=== PATIENT | male | born 1990 | race Caucasian/White ===

== ENCOUNTER 2023-03-13 11:34 | Emergency (ER) | payer MEDICAID, SELFPAY ==
[2023-03-13 11:52] VITALS: BP 128/86; PULSE 97; RESP 16; TEMP 36.9; O2SAT 95; BMI 25.8
== END 2023-03-13 13:52 | disposition left against medical advice (07) ==
LOC: ED 13:29
PROVIDERS: Emergency Provider Family Medicine
DX: Z53.21 Procedure and treatment not carried out due to patient leaving prior to being seen by health care provider (principal)

== ENCOUNTER 2023-09-16 06:21 | Emergency (ER) | payer MEDICAID, SELFPAY ==
[2023-09-16 06:27] VITALS: BP 105/81; PULSE 84; RESP 18; TEMP 37.1; O2SAT 99; BMI 25.8
--- NOTE | 2023-09-16 06:57 | ED.GENADULT ---
HPI - General Adult General Chief complaint: Asthma Stated complaint: difficulty breathing, asthma Time Seen by Provider: 09/16/23 06:27 History of Present Illness HPI narrative: CC: Shortness of Breath, Cough pt. with symptoms for last couple of days. worse over the night tonight. did take rescue inhaler with little relief. dry cough. denies fevers, n/v, diarrhea. 32-year-old man presenting to the emergency department with concern of shortness of breath increasing over the last couple of days. Worse tonight. Is out of his nebulizations. Did use his rescue inhaler which has not helped much. He is not really having chest pain. No fever. 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 Has had some runny nose and a little cough. Does continue to smoke. No particular exposures. Does acknowledge a history of pneumonia. Related Data Home Medications Medication Instructions Recorded Confirmed albuterol sulfate 90 mcg/actuation 1 - 2 puff inhalation Q4H PRN 03/13/23 09/16/23 aerosol inhaler (Ventolin HFA) budesonide-formoterol HFA 160 2 puff inhalation BID 03/13/23 09/16/23 mcg-4.5 mcg/actuation aerosol inhaler (Symbicort) dextroamphetamine-amphetamine 10 15 - 20 mg PO BID@08,14 03/13/23 09/17/23 mg tablet testosterone cypionate 200 mg/mL 40 mg IM Q7D 03/13/23 09/16/23 intramuscular oil ipratropium 0.5 mg-albuterol 3 mg 3 ml inhalation QID PRN wheezing 09/16/23 09/16/23 (2.5 mg base)/3 mL nebulization soln cetirizine 10 mg tablet (24Hour 10 mg PO DAILY PRN 09/17/23 09/17/23 Allergy) hydroxyzine HCl 25 mg tablet 25 mg PO Q6H PRN 09/17/23 09/17/23 lorazepam 1 mg tablet 1 mg PO HS PRN 09/17/23 09/17/23 ondansetron 4 mg disintegrating 4 mg PO Q8H PRN nausea/vomiting 09/17/23 09/17/23 tablet Previous Rx's Medication Instructions Recorded prednisone 20 mg tablet 40 mg (2 x 20 mg) PO DAILY #8 tabs 09/16/23 azithromycin 250 mg tablet 250 mg PO Q24H #3 tabs 09/18/23 cefpodoxime 200 mg tablet 200 mg PO BID #14 tabs 09/18/23 fluticasone propionate 50 1 spray intranasal BID #16 grams 09/18/23 mcg/actuation nasal spray,suspension (Flonase Allergy Relief) ipratropium 0.5 mg-albuterol 3 mg 3 ml inhalation QID #90 mL 09/18/23 (2.5 mg base)/3 mL nebulization soln nicotine (polacrilex) 2 mg gum 2 mg buccal Q1H PRN #40 ea 09/18/23 nicotine 14 mg/24 hr daily 1 patch transdermal HS #28 ea 09/18/23 transdermal patch Allergies Allergy/AdvReac Type Severity Reaction Status Date / Time sertraline [From Zoloft] Allergy Severe Asthma Verified 09/16/23 06:32 morphine Allergy Mild Anxiety Verified 09/16/23 06:32 Review of Systems Status of ROS: Reports: 6 or more systems reviewed and unremarkable except as noted in History and below [facility] Medical History Anxiety ?F41.9 - Anxiety disorder, unspecified (ICD-10) ADHD ?F90.9 - Attention-deficit hyperactivity disorder, unspecified type (ICD-10) Transgender man on hormone therapy ?F64.0 - Transsexualism (ICD-10) ?Z79.899 - Other nursing home (current) drug therapy (ICD-10) Surgical History H/O mastectomy ?Z90.10 - Acquired absence of unspecified breast and nipple (ICD-10) Social History Narrative: Lives with partner Brie (MDM if needed). 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 + smoker, very motivated to quit. No ETOH currently. Full Code. What is your current living situation?: I presently have a place to live Problems where you live: no known problems Problems where you live details: N/A In the past 12 months, utilities in danger of being shut off: no In past 12 months, lack of transportation kept you from medical appts, meetings, work, or getting things needed for daily living: no In the past 12 mos, have been you worried that your food would run out before you had money to buy more?: never true In the past 12 mos, the food you bought just didn't last and you didn't have money to buy more?: never true Highest level of school completed/degree received: decline to answer Smoking Status: Current every day smoker What tobacco products do you use: cigarettes Second hand tobacco smoke exposure: Yes How often do you have a drink containing alcohol: never AUDIT-C Alcohol total score: 0 Non-prescribed substance use: marijuana (any form) Caffeine: Yes How often does anyone, including family, friends and others, physically hurt you: never How often does anyone, including family, friends and others, insult or talk down to you: never How often does anyone, including family, friends and others, threaten you with harm: never How often does anyone, including family, friends and others, scream or curse at you: never service: No Exam Narrative: Exam Narrative: Pleasant. Clearly labored in his breathing but not tachypneic. Is able to speak in complete sentences. Does sound congested in the nasopharynx without swelling erythema or tenderness. Neck appears symmetrical. No supraclavicular crepitus. There are breath sounds throughout with diffuse rhonchi and trace end-expiratory wheezing. Heart in regular rate and rhythm. Extremities are well perfused. There is no perioral bluing. Oropharynx hyperemic. Moist. Const: Vital Signs, click to edit/add: Vital Signs - 24 hr 09/16/23 06:27 Temperature 98.7 F Pulse Rate [Right Pulse Oximeter] 84 Respiratory Rate 18 Blood Pressure [Ri ght Upper Arm] 105/81 Pulse Oximetry 99 Oxygen Delivery Me thod Room Air Documenting provider has reviewed patient's vital signs: yes Course Vital Signs Vital signs: Initial Vital Signs Temperature 98.7 F 09/16/23 06:27 Temperature Source Temporal Artery Scan 09/16/23 06:27 Pulse Rate 84 09/16/23 06:27 Respiratory Rate 18 09/16/23 06:27 Blood Pressure 105/81 09/16/23 06:27 Blood Pressure Mean 89 09/16/23 06:27 Blood Pressure Position Sitting 09/16/23 06:27 Pulse Oximetry 99 09/16/23 06:27 Oxygen Delivery Method Room Air 09/16/23 06:27 Vital Signs Temperature 98.7 F 09/16/23 06:27 Pulse Rate 84 09/16/23 06:27 Respiratory Rate 18 09/16/23 06:27 Blood Pressure 105/81 09/16/23 06:27 Pulse Oximetry 99 09/16/23 06:27 Oxygen Delivery Method Room Air 09/16/23 06:27 Temperature 98.7 F 09/16/23 06:27 Pulse Rate 84 09/16/23 06:27 Respiratory Rate 18 09/16/23 06:27 Blood Pressure 105/81 09/16/23 06:27 Pulse Oximetry 95 09/16/23 07:07 Oxygen Delivery Method Room Air 09/16/23 06:27 Medical Decision Making MDM Narrative Medical decision making narrative: Will be monitored on oximetry. He is oxygenating well at the moment though clearly struggling. History of asthma/reactive airway. Differential does include pneumonia and given history probably would be a good idea to do a chest x-ray. I suppose pulmonary embolus could be in differential to but with this degree of respiratory effect, I might expect worsening vital signs. Given community prevalence, we discussed screening for COVID influenza. Does not seem to have secondary symptoms of these and mutually agreed to defer. Given a DuoNeb and prednisone. Less wheeze and less rhonchi on reauscultation. Still with good air movement. Chest x-ray reviewed by me looks to be without any infiltrate. With treatment above overall improved felt he could go home with further nebulizations available. See patient discharge plan Medical Records Medical records reviewed: Yes I reviewed the patient's medical records Lab Data Lab results reviewed: Yes I reviewed the patient's lab results Discharge Plan Discharge Clinical Impression: URI (upper respiratory infection), Asthma with acute exacerbation Patient Disposition: Home, Self-Care Condition: Improved Instructions: Asthma (ED), Upper Respiratory Infection (DC) Additional Instructions: Stay well-hydrated. Menthol vapors overnight might be helpful. Do what you can to quit smoking. Might be a good idea to follow up with your primary care provider for recheck of progress regarding treatment of your asthma. Good to see you. Prednisone and DuoNebs sent into your pharmacy. Prescriptions: New prednisone 20 mg tablet 40 mg PO DAILY Qty: 8 1RF No Action dextroamphetamine-amphetamine 10 mg tablet 15 - 20 mg PO BID@08,14 Rx Instructions: TAKE 2 TABLETS BY MOUTH EVERY MORNING AND 1.5 IN THE EARLY AFTERNOON testosterone cypionate 200 mg/mL oil 40 mg IM Q7D albuterol sulfate [Ventolin HFA] 90 mcg/actuation HFA aerosol inhaler 1 - 2 puff INHALATION Q4H PRN budesonide-formoterol [Symbicort] 160-4.5 mcg/actuation HFA aerosol inhaler 2 puff INHALATION BID ipratropium-albuterol 0.5 mg-3 mg(2.5 mg base)/3 mL solution for nebulization 3 ml INHALATION QID PRN (Reason: wheezing) Hold Instructions: Resume on 09/23/23. hydroxyzine HCl 25 mg tablet 25 mg PO Q6H PRN lorazepam 1 mg tablet 1 mg PO HS PRN ondansetron 4 mg tablet,disintegrating 4 mg PO Q8H PRN (Reason: nausea/vomiting) cetirizine [24Hour Allergy] 10 mg tablet 10 mg PO DAILY PRN ipratropium-albuterol 0.5 mg-3 mg(2.5 mg base)/3 mL Solution For Nebulization 3 ml inhalation QID Qty: 90 1RF Rx Instructions: Take 4 times daily on scheduled basis for 5 days, then resume 4 times daily as needed nicotine 14 mg/24 hr Patch 24 Hour 1 patch transdermal HS Qty: 28 1RF nicotine (polacrilex) 2 mg Gum 2 mg buccal Q1H PRNQty: 40 1RF azithromycin 250 mg Tablet 250 mg PO Q24H Qty: 3 0RF Taper: Z-NIK 250 mg Q24H for 3 Days and 0 Hour cefpodoxime 200 mg tablet 200 mg PO BID Qty: 14 0RF Rx Instructions: must administer with a meal/food fluticasone propionate [Flonase Allergy Relief] 50 mcg/actuation spray,suspension 1 spray intranasal BID Qty: 16 2RF Rx Instructions: administer into each nostril Follow Up/Referrals: Provider,Not a Local [Primary Care Provider] - Stand Alone Forms: [employer] Info Instructions
--- NOTE | 2023-09-16 07:06 | CRLHL7_ITS ---
For Patients: As a result of the Century Cures Act, medical imaging exams and procedure reports are released immediately into your electronic medical record. You may view this report before your referring provider. If you have questions, please contact your health care provider. INDICATION: Asthma exacerbation, right lower posterior chest pain, history pneumo COMPARISON: 10/21/2019 TECHNIQUE: 1 view chest radiograph. FINDINGS: The lungs are well expanded. No focal consolidations. No pulmonary edema. No pleural effusion. No pneumothorax. No pneumomediastinum. Normal cardiomediastinal silhouette. Bones: Normal for age. IMPRESSION: Lungs clear. Normal chest radiograph. Dictated by Faith Palencia MD @ 09/16/2023 7:27:23 AM (Electronically Signed)
[2023-09-16 07:07] VITALS: O2SAT 95
[2023-09-16] MEDS: IPRAT-ALBUT 0.5-2.5 MG/3 ML NEB 1 NEB IH (07:43)
--- NOTE | 2023-09-16 07:49 | ED.NURSE ---
patient is improving after the duo neb, sounds less audible wheeze and have the prednisone for patient to take. given some crackers to eat with meds.
== END 2023-09-16 08:39 | disposition home or self-care (01) ==
PROVIDERS: Emergency Provider Family Medicine
DX: J45.901 Unspecified asthma with (acute) exacerbation (principal)
CPT/HCPCS: 71045; 94640; 94761; 99284

== ENCOUNTER 2023-09-16 20:55 | Observation (INO) | payer MEDICAID, SELFPAY ==
[2023-09-16 21:01] VITALS: BP 146/74; PULSE 128; RESP 28; TEMP 37.6; O2SAT 93
--- NOTE | 2023-09-16 21:20 | ED.SOB ---
HPI - SOB/Dyspnea General Chief Complaint: Shortness of Breath/Dyspnea Stated Complaint: Difficulty breathing Time Seen by Provider: 09/16/23 21:13 History of Present Illness HPI Narrative: This 32-year-old male comes in with shortness of breath due to asthma symptoms. He was seen early this morning in this same emergency department at which time he had chest x-ray with no sign of acute findings. He also received a DuoNeb and a dose of prednisone. He states that he felt better initially but his shortness of breath returned a couple hours prior to arrival here. He arrives with a pulse at 128 beats per minute with use of accessory muscles for breathing and bilateral inspiratory and expiratory wheezes. He is able to speak in 2 or 3 words at a time. O2 sats are at 93% on room air with respiration rate at 28 per minute. He states that he thinks he has had a fever. He does have an occasional cough. He is using albuterol at home and states that he is also taking Symbicort as a preventative medicine. Related Data Home Medications Medication Instructions Recorded Confirmed albuterol sulfate 90 mcg/actuation 1 - 2 puff inhalation Q4H PRN 03/13/23 09/16/23 aerosol inhaler (Ventolin HFA) budesonide-formoterol HFA 160 2 puff inhalation BID 03/13/23 09/16/23 mcg-4.5 mcg/actuation aerosol inhaler (Symbicort) dextroamphetamine-amphetamine 10 10 mg PO DIRECTED 03/13/23 09/16/23 mg tablet testosterone cypionate 200 mg/mL 40 mg IM Q7D 03/13/23 09/16/23 intramuscular oil ipratropium 0.5 mg-albuterol 3 mg 3 ml inhalation QID PRN wheezing 09/16/23 09/16/23 (2.5 mg base)/3 mL nebulization soln Previous Rx's Medication Instructions Recorded ipratropium 0.5 mg-albuterol 3 mg 3 ml inhalation QID PRN #90 mL 09/16/23 (2.5 mg base)/3 mL nebulization soln prednisone 20 mg tablet 40 mg (2 x 20 mg) PO DAILY #8 tabs 09/16/23 Allergies Allergy/AdvReac Type Severity Reaction Status Date / Time sertraline [From Zoloft] Allergy Severe Asthma Verified 09/16/23 06:32 morphine Allergy Mild Anxiety Verified 09/16/23 06:32 Review of Systems Status of ROS: Reports: 10 or more systems reviewed and unremarkable except as noted in History and below Narrative: Constitutional: No fevers, no weight gain or loss. Eyes: No discharge. No vision changes. HENT: No congestion, no sore throat, no ear pain. Cardiovascular: No chest pain, no palpitations. Respiratory: Bilateral wheezes and shortness of breath. Gastrointestinal: No abdominal pain, no vomiting, no diarrhea. Genitourinary: No dysuria, no hematuria. Musculoskeletal: Normal range of motion. Skin: No rashes, no pruritis. Neurological: No dizziness, weakness, sensory change, speech change. Endo/Heme/Allergies: No bruising or bleeding. No polydipsia. Pysch: no suicidality, no anxiety, no insomnia. All other systems reviewed and are negative. Exam Narrative: Exam Narrative: Constitutional: Well-developed, well-nourished, no acute distress. HEENT: Normocephalic, atraumatic. Neck: Normal range of motion. Nontender. Supple. Heart: Regular. No murmurs. Tachycardia. Intact distal pulses. Lungs: Bilateral inspiratory and expiratory wheezes. Use of accessory muscles for breathing. Abdomen: Normal bowel sounds. Nontender. No rebound tenderness. Genitalia: Deferred. Back: No midline tenderness. Normal range of motion. Extremities: Normal range of motion. No injury. Skin: Intact. No rash. Warm. No erythema or pallor. Neurologic: No altered sensation. No weakness. Alert and oriented. Psychiatric: No suicidality. No anxiety or depression. No insomnia. Nursing notes and vitals signs are reviewed. Const: Vital Signs, click to edit/add: Vital Signs - 24 hr 09/16/23 21:01 09/16/23 22:04 Temperature 99.7 F H Pulse Rate 111 H Pulse Rate [Left P ulse Oximeter] 128 H Respiratory Rate 28 H Blood Pressure [Ri ght Upper Arm] 146/74 H Pulse Oximetry 93 93 Oxygen Delivery Me thod Room Air Course Vital Signs Vital signs: Initial Vital Signs Temperature 99.7 F H 09/16/23 21:01 Temperature Source Temporal Artery Scan 09/16/23 21:01 Pulse Rate 128 H 09/16/23 21:01 Pulse Rhythm Regular 09/16/23 21:01 Respiratory Rate 28 H 09/16/23 21:01 Blood Pressure 146/74 H 09/16/23 21:01 Blood Pressure Mean 98 09/16/23 21:01 Blood Pressure Position Sitting 09/16/23 21:01 Pulse Oximetry 93 09/16/23 21:01 Oxygen Delivery Method Room Air 09/16/23 21:01 Vital Signs Temperature 99.7 F H 09/16/23 21:01 Pulse Rate 128 H 09/16/23 21:01 Respiratory Rate 28 H 09/16/23 21:01 Blood Pressure 146/74 H 09/16/23 21:01 Pulse Oximetry 93 09/16/23 21:01 Oxygen Delivery Method Room Air 09/16/23 21:01 Temperature 99.7 F H 09/16/23 21:01 Pulse Rate 111 H 09/16/23 22:04 Respiratory Rate 28 H 09/16/23 21:01 Blood Pressure 146/74 H 09/16/23 21:01 Pulse Oximetry 93 09/16/23 22:04 Oxygen Delivery Method Room Air 09/16/23 21:01 MDM - SOB/Dyspnea MDM Narrative Medical decision making narrative: This patient comes in with increased respiratory rate, decreased air movement, tachycardia, and recurrent flare up of asthma symptoms. He was seen earlier this morning and had temporary improvement with a DuoNeb and a steroid dose. The patient arrives here with oximetry at 92% on room air. A DuoNeb was administered and an IV dose of Solu-Medrol 125 mg was given. Lab results returned with leukocytosis at around 14,000 which is likely due to his steroid dose recently. The patient continues to have similar oximetry after these treatments and yet has some tachycardia and tachypnea. IA spoke with the hospitalist business system consultant, Dr. Rios, who agrees to his admission into the hospital for further management. Lab Data Labs: Lab Results 09/16/23 Range/Units 21:28 WBC 14.87 H (4.50-11.00) K/uL RBC 5.78 (4.30-5.90) m/uL Hgb 17.3 (13.5-17.5) gm/dL Hct 49.0 (37.0-53.0) % MCV 85 (80-100) fL MCH 30 (26-34) pg MCHC 35 (32-36) gm/dL RDW Coeff of Becca 13.0 (11.5-15.5) % Plt Count 373 (140-440) K/uL Neut % (Auto) 83.0 H (42.0-72.0) % Lymph % (Auto) 9.5 L (20-44) % Taliaferro % (Auto) 6.4 (0.0-11.0) % Eos % (Auto) 0.2 (0.0-7.0) % Baso % (Auto) 0.1 (0.0-3.0) % Neut # (Auto) 12.30 H (1.7-7.0) K/uL Lymph # (Auto) 1.40 (0.90-2.90) K/uL Taliaferro # (Auto) 1.00 H (0.00-0.90) K/UL Eos # (Auto) 0.00 (0.00-0.50) K/uL Baso # (Auto) 0.00 (0.00-0.30) K/uL Abs Immat Gran (auto) 0.10 (0.00-0.30) K/uL Imm/Tot Granulo (auto) 0.8 % Sodium 142 (135-149) mmol/L Potassium 3.8 (3.6-5.1) mmol/L Chloride 106 (96-114) mmol/L Carbon Dioxide 22 (20-32) mmol/L Anion Gap 14 (7-15) mEq/L BUN 15 (5-24) mg/dL Creatinine 0.8 (0.5-1.5) mg/dL Estimated GFR 119 ml/min Glucose 161 H (60-115) mg/dL Calcium 10.2 (8.4-10.6) mg/dL Discharge Plan Discharge Clinical Impression: Asthma with acute exacerbation Patient Disposition: Admitted As Inpatient Condition: Unchanged Prescriptions: No Action dextroamphetamine-amphetamine 10 mg tablet 10 mg PO DIRECTED Rx Instructions: TAKE 2 TABLETS BY MOUTH EVERY MORNING AND 1.5 IN THE EARLY AFTERNOON testosterone cypionate 200 mg/mL oil 40 mg IM Q7D albuterol sulfate [Ventolin HFA] 90 mcg/actuation HFA aerosol inhaler 1 - 2 puff INHALATION Q4H PRN budesonide-formoterol [Symbicort] 160-4.5 mcg/actuation HFA aerosol inhaler 2 puff INHALATION BID ipratropium-albuterol 0.5 mg-3 mg(2.5 mg base)/3 mL solution for nebulization 3 ml INHALATION QID PRN (Reason: wheezing) ipratropium-albuterol 0.5 mg-3 mg(2.5 mg base)/3 mL solution for nebulization 3 ml inhalation QID PRNQty: 90 1RF prednisone 20 mg tablet 40 mg PO DAILY Qty: 8 1RF Follow Up/Referrals: Provider,Not a Local [Referring] -
[2023-09-16] MEDS: IPRAT-ALBUT 0.5-2.5 MG/3 ML NEB 1 NEB IH ×2 (21:28→23:46)
[2023-09-16] MEDS: METHYLPREDNISOLONE SOD SUCC 62.5 MG/ML (125) 125 MG IVP (21:28)
[2023-09-16 21:39] LABS: Basophils Percent Auto 0.1 % (0.0-3.0); Eosinophils Percent Auto 0.2 % (0.0-7.0); Hemoglobin* 17.3 gm/dL (13.5-17.5); Immature Granulocytes Pct Auto 0.8 %; Lymphocytes Percent Auto 9.5 % (20-44); Mean Corpuscular HGB Conc 35 gm/dL (32-36); Mean Corpuscular Hemoglobin 30 pg (26-34); Mean Corpuscular Volume 85 fL (80-100); Monocytes Percent Auto 6.4 % (0.0-11.0); Platelet Count* 373 K/uL (140-440); Red Blood Count 5.78 m/uL (4.30-5.90); White Blood Count* 14.87 K/uL (4.50-11.00)
[2023-09-16 21:45] LABS: Slide Review Reflex No
[2023-09-16 21:59] LABS: Chloride* 106 mmol/L (96-114); Potassium* 3.8 mmol/L (3.6-5.1); Sodium* 142 mmol/L (135-149)
[2023-09-16 22:02] LABS: Anion Gap 14 mEq/L (7-15); Blood Urea Nitrogen* 15 mg/dL (5-24); Carbon Dioxide* 22 mmol/L (20-32); Creatinine* 0.8 mg/dL (0.5-1.5); Estimated Glomerular Filt Rate 119 ml/min
[2023-09-16 22:03] LABS: Calcium* 10.2 mg/dL (8.4-10.6); Glucose* 161 mg/dL (60-115)
[2023-09-16 22:04] VITALS: PULSE 111; O2SAT 93
--- NOTE | 2023-09-16 22:28 | PC.NURSE ---
report given to Maldonado Lugo/Tiffanie hernandez going to CCU2. Dr Rios in room
--- NOTE | 2023-09-16 22:40 | CRLHL7_ITS ---
For Patients: As a result of the Cures Act, medical imaging exams and procedure reports are released immediately into your electronic medical record. You may view this report before your referring provider. If you have questions, please contact your health care provider. INDICATION: Shortness of breath. TECHNIQUE: Chest 1 view. COMPARISON: Earlier same day. FINDINGS: Cardiovascular and mediastinum: Heart size and vasculature are normal in caliber and appearance. Lungs and pleural spaces: Lungs are clear. No sign of infiltrate or mass. No sign of pleural effusion. No pneumothorax. Bones and soft tissues: No significant findings. IMPRESSION: Unremarkable chest. Dictated by Omer Sexton MD @ 09/16/2023 11:19:18 PM (Electronically Signed)
[2023-09-16 23:03] VITALS: RESP 22; O2SAT 94
--- NOTE | 2023-09-16 23:04 | PM.IMHP1 ---
Hospitalist- H&P: HPI History of Present Illness Date Seen: 09/16/23 Chief complaint: Difficulty breathing Narrative: Franki Mcadams is a 32 year old male who presented to the emergency room this evening for persistent difficulty breathing in the setting of an asthma exacerbation. He has been feeling poorly with shortness of breath and increased anxiety for the past 1-2 days. No recent travel, children have had URIs recently. 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 He presented to our ED this morning and responded well to a DuoNeb and was discharged home with prednisone. As the day has gone on, he has become progressively more short of breath and tachypneic; thus, returned to the emergency room. He has been taking his albuterol at home and his Symbicort. He has never been intubated. ER course and findings: - tachypneic on arrival, intermittent use of accessory muscles and 2-3 word dyspnea - improved after nebulization and IV Solu-Medrol - oxygen saturations 93% on room air Given worsening of exacerbation, tachypnea, and risk of decompensation, patient admitted to the hospital. Partner Brie is present during H&P. Histories updated below. PCP is Dr. Efe rico. Review of Systems Status of ROS: Reports: 10 or more systems reviewed and unremarkable except as noted in History and below Narrative: - did feel like he had a pop in right upper chest after coughing in ED. 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 + smoker, very motivated to quit. No ETOH currently. Full Code. Meds Home Medications and Allergies Home Medications Medication Instructions Recorded Confirmed Type albuterol sulfate 90 mcg/actuation 1 - 2 puff inhalation Q4H PRN 03/13/23 09/16/23 History aerosol inhaler (Ventolin HFA) budesonide-formoterol HFA 160 2 puff inhalation BID 03/13/23 09/16/23 History mcg-4.5 mcg/actuation aerosol inhaler (Symbicort) dextroamphetamine-amphetamine 10 10 mg PO DIRECTED 03/13/23 09/16/23 History mg tablet testosterone cypionate 200 mg/mL 40 mg IM Q7D 03/13/23 09/16/23 History intramuscular oil ipratropium 0.5 mg-albuterol 3 mg 3 ml inhalation QID PRN wheezing 09/16/23 09/16/23 History (2.5 mg base)/3 mL nebulization soln Allergies Allergy/AdvReac Type Severity Reaction Status Date / Time sertraline [From Zoloft] Allergy Severe Asthma Verified 09/16/23 06:32 morphine Allergy Mild Anxiety Verified 09/16/23 06:32 Exam Narrative: Exam Narrative: GEN: Alert and answering questions appropriately, nontoxic, during my exam he has 4-5 word dyspnea HEENT: EOMIs bilaterally, no scleral icterus, oropharynx moist and clear without trismus CV: Sinus tachycardia with heart rate of 100s during my exam R: Respiratory rate 24 during my exam. Decreased breath sounds bilateral bases, expiratory wheezing bilateral apices Ext: wwp, no concerning edema Skin: No concerning skin lesions or rashes on exposed skin Neuro: Nonfocal Psych: Mild anxiety, otherwise appropriate Const: Vital Signs, click to edit/add: Vital Signs - 24 hr 09/16/23 21:01 09/16/23 22:04 Temperature 99.7 F H Pulse Rate 111 H Pulse Rate [Left P ulse Oximeter] 128 H Respiratory Rate 28 H Blood Pressure [Ri ght Upper Arm] 146/74 H Pulse Oximetry 93 93 Oxygen Delivery Me thod Room Air Hospitalist - H&P: Result Labs Labs: Short CBC 09/16/23 Range/Units 21:28 WBC 14.87 H (4.50-11.00) K/uL Hgb 17.3 (13.5-17.5) gm/dL Hct 49.0 (37.0-53.0) % Plt Count 373 (140-440) K/uL BMP 09/16/23 21:28 Sodium 142 Potassium 3.8 Chloride 106 Carbon Dioxide 22 BUN 15 Creatinine 0.8 Glucose 161 H Calcium 10.2 Assessment and Plan Assessment and plan (1) Asthma with acute exacerbation: Problem comment: - Solumedrol, start oral Prednisone tomorrow - nebulizers, smoking cessation - no need for antibiotic therapy at this time Status: Acute (2) Tobacco user: Problem comment: - patch, prn Ativan - patient understands the importance of quitting Status: Acute Plan - per above - SCDs and ambulation for ppx - partner updated at bedside, questions answered
[2023-09-16 23:19] VITALS: BP 135/86; PULSE 93; RESP 18; TEMP 37.1; O2SAT 93; BMI 23.7
[2023-09-16] MEDS: KETOROLAC 30 MG/ML inj IVP (23:46)
[2023-09-16] MEDS: hydrOXYzine pamoate 25 MG CAPSULE PO (23:46)
[2023-09-16] MEDS: LORazepam 0.5 MG TABLET PO (23:53)
[2023-09-17] VITALS (7 sets, daily range): BP systolic 116–143; BP diastolic 70–99; PULSE 83–127; RESP 18–24; TEMP 36.6–37.1; O2SAT 90–92
[2023-09-17] MEDS: NICOTINE 14 mg PATCH 1 PATCH TRANSDERMA ×2 (00:59→20:22)
[2023-09-17] MEDS: METHYLPREDNISOLONE SOD SUCC 62.5 MG/ML (125) 125 MG IVP (03:00)
--- NOTE | 2023-09-17 04:47 | PC.NURSE ---
Shift note: Pt arrived to the unit at 2300 from the ED on a wheelchair accompanied by his girlfriend. Alert and oriented on arrival. Pt complained of SOB, ribs pain, and back pain. HOB elevated to enhance breathing. Pt was admitted by Dr. Peck. Vitally stable on arrival but appeared anxious. Ipra Neb, pain med and Lorazepam given. Ambulate independently in room. Pt became calmed and feel asleep after medication given. Pt had adequate sleep. O2> 90 on room air.
[2023-09-17] MEDS: IPRAT-ALBUT 0.5-2.5 MG/3 ML NEB 1 NEB IH ×4 (05:31→22:48)
[2023-09-17 07:43] LABS: Hematocrit 47.5 % (37.0-53.0); Hemoglobin* 16.7 gm/dL (13.5-17.5); Mean Corpuscular HGB Conc 35 gm/dL (32-36); Mean Corpuscular Hemoglobin 30 pg (26-34); Mean Corpuscular Volume 85 fL (80-100); Platelet Count* 367 K/uL (140-440); Red Blood Count 5.58 m/uL (4.30-5.90); White Blood Count* 12.11 K/uL (4.50-11.00)
[2023-09-17 07:48] LABS: Slide Review Reflex No
[2023-09-17 07:56] LABS: Chloride* 108 mmol/L (96-114); Potassium* 4.3 mmol/L (3.6-5.1); Sodium* 142 mmol/L (135-149)
[2023-09-17 07:59] LABS: Anion Gap 13 mEq/L (7-15); Blood Urea Nitrogen* 19 mg/dL (5-24); Carbon Dioxide* 21 mmol/L (20-32); Creatinine* 0.8 mg/dL (0.5-1.5); Est. Creatinine Clearance* 117.41; Estimated Glomerular Filt Rate 119 ml/min
[2023-09-17 08:00] LABS: Calcium* 10.4 mg/dL (8.4-10.6); Glucose* 171 mg/dL (60-115)
[2023-09-17] MEDS: SODIUM CHLORIDE 0.9 % (FLUSH) 10 ML SYRINGE 5 ML IVF ×2 (08:30→20:22)
[2023-09-17] MEDS: predniSONE 20 MG TABLET 60 MG PO (08:30)
[2023-09-17 08:42] LABS: Magnesium* 2.2 mg/dL (1.5-2.6)
[2023-09-17] MEDS: MAGNESIUM IV 2 GM/50 ML PIGGYBACK IVPB (09:06)
[2023-09-17] MEDS: ACETAMINOPHEN 325 MG TABLET 975 MG PO ×2 (09:10→20:21)
[2023-09-17] MEDS: METHYLPREDNISOLONE SOD SUCC 40 MG/ML IVP ×2 (09:14→20:20)
[2023-09-17 09:24] LABS: Strep A DNA Probe* NOT DETECTED (Not Detectd)
[2023-09-17 09:36] LABS: PCR FLU A Negative PCR FLU A (Negative); PCR FLU B Negative PCR FLU B (Negative); PCR RSV Negative PCR RSV (Negative)
[2023-09-17 09:37] LABS: SARS PCR* Negative SARS-CoV-2 (Negative)
[2023-09-17] MEDS: hydrOXYzine pamoate 25 MG CAPSULE PO ×2 (11:04→20:21)
--- NOTE | 2023-09-17 11:20 | CRLHL7_ITS ---
For Patients: As a result of the Century Cures Act, medical imaging exams and procedure reports are released immediately into your electronic medical record. You may view this report before your referring provider. If you have questions, please contact your health care provider. INDICATION: Subcutaneous emphysema, pneumomediastinum. Patient was coughing and heard a pop. History of bilateral mastectomy. TECHNIQUE: CT of the chest without IV contrast. Coronal and sagittal reconstructions. COMPARISON: Chest radiograph 09/16/2023. FINDINGS: Normal heart size. Normal caliber thoracic aorta and central pulmonary arteries. No thoracic lymphadenopathy. There is extensive pneumomediastinum and subcutaneous emphysema in the lower neck and bilateral chest wall. No obvious dehiscence of the wall of the trachea or esophagus. There appears to be a small amount of fluid in the anterior mediastinum, possibly hematoma. No generalized pericardial effusion. No fluid around the esophagus. Status post bilateral mastectomy. The thyroid gland is normal in appearance. Small patchy ground-glass opacity in the right lower lobe may be infectious or inflammatory. No dense consolidation. No pleural effusion or pneumothorax. No suspicious pulmonary nodules. No central endobronchial lesion or significant bronchial wall thickening. The visualized upper abdomen is unremarkable. Mild degenerative changes in the lower thoracic spine. No acute fracture identified. IMPRESSION: 1. Extensive pneumomediastinum and subcutaneous emphysema. No obvious dehiscence of the wall of the trachea or esophagus. 2. Small amount of fluid in the anterior mediastinum could represent hematoma. 3. Small patchy ground-glass opacity in the right lower lobe may be infectious or inflammatory. Please note that all CT scans at this facility use dose modulation, iterative reconstruction, and/or weight-based dosing when appropriate to reduce radiation dose to as low as reasonably achievable. Dictated by Kaye Edward MD @ 09/17/2023 3:11:39 PM (Electronically Signed)
--- NOTE | 2023-09-17 14:50 | P.IMPN_ITS ---
Progress Note: A&P Assessment and plan (1) Asthma with acute exacerbation: Problem details: - Solumedrol, start oral Prednisone tomorrow - nebulizers, smoking cessation - load with magnesium - initiate azithromycin Z-Sukhjinder - stressed importance of smoking cessation, stopping marijuana smoking, stopping vaping, do know he can to maintain his general health as well as his lung health. Status: Acute (2) Acquired pneumomediastinum: Problem details: - Likely from cough and asthma exacerbation. - CT scan of chest without contrast ordered, results pending. - anticipate will be able to monitor and not require additional intervention. Status: Acute (3) Subcutaneous emphysema, non-traumatic: Problem details: - Likely from cough and asthma exacerbation. - anticipate will be able to monitor not require additional intervention. Status: Acute (4) Cough: Problem details: - treat asthma exacerbation. Status: Acute (5) URI (upper respiratory infection): Status: Acute (6) Tobacco user: Problem details: - nicotine patch, prn Ativan - patient understands the importance of quitting Status: Acute Plan 1. Reviewed impression with patient, his , his mother. Answered their q uestions. 2. Continue with plan as specified above. 3. Await CT scan of chest. 4. Consider General surgery consultation if there is a need for chest tube placement. Time Spent With Patient Total time spent: 45 minutes Subjective Time Seen by Provider: 08:00 Date Seen: 09/17/23 Interval history: Hospital day 2. 32-year-old man with 2 week history of evolving wheezing, shortness of breath, coughing. Presented to the emergency department yesterday morning, 09/16/2023, determined to have asthma exacerbation, treated accordingly, discharge with instructions to return if condition worsening. Return last night, 09/16/2023, with worsening symptoms. Was admitted for more intense treatment of asthma exacerbation. Chest x-ray was performed on the morning and on the evening of 09/16/2023. Radiologist reported both x-rays as unremarkable. Denies fevers, rigors, diaphoresis. Acknowledges smoking 1/2 pack cigarettes daily. Smokes marijuana. Vapes a marijuana product as well. 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 Is exposed to various perfumes and other strong smells which also exacerbate his asthma. Children recently developed URI symptoms. Has never been intubated previously. Does take some measures to treat asthma at baseline with usually adequate, satisfactory outcomes. When I 1st see him this morning he still rather dyspneic and wheezy. As we intensify his therapy during the course the day and I see him later on he is much more relaxed and not as tachypneic. Has not been hypoxic. Tells me has some fluid in his neck and wonders if he might of pulled a muscle, although he has no pain. Exam Narrative: Exam Narrative: Examine him in his hospital room. Initially he appears frightened, tachypneic. Later in the day he is more relaxed and no longer tachypneic like he was earlier. Room air oxygen saturations low 90s at rest. Tachycardic when I 1st see him with heart rates in the 120 to 130s. Sinus rhythm. Later in the day he is much more rested still has a tachycardia but heart rate around 100. Vision and hearing are adequate. Alert and oriented to self, place, time, situation. Friendly, articulate, cooperative. Appropriately anxious. Earlier this morning he had about 5-6 word a dyspnea. Normal tympanic membranes. Midline nasal septum clear nasal discharge. Dentition in fair repair. Mild injection posterior pharynx without any exudate. Lungs with wheezing, inspiratory and expiratory, and decreased air movement initially. Later in the day he no longer has wheezing still has some scattered rhonchi and air movement is a little more smooth. On his chest and in the base of both next I can feel subcutaneous emphysema. Heart tones with regular rhythm, normal S1-S2, without murmur, gallop, rub. Abdomen with active bowel sounds, soft, nontender. Moves all 4 extremities. Independent with transfer, station, gait. Skin warm, dry, intact. No rashes, petechiae, cyanosis. Const: Vital Signs, click to edit/add: Vital Signs - 24 hr 09/16/23 21:01 09/16/23 22:04 09/16/23 23:03 Temperature 99.7 F H Pulse Rate 111 H Pulse Rate [Left P ulse Oximeter] 128 H Respiratory Rate 28 H 22 Blood Pressure [Le ft Arm] Blood Pressure [Ri ght Upper Arm] 146/74 H Pulse Oximetry 93 93 94 Oxygen Delivery Me thod Room Air Room Air 09/16/23 23:19 09/17/23 03:00 09/17/23 07:00 Temperature 98.8 F 98.8 F Pulse Rate Pulse Rate [Left P ulse Oximeter] 93 98 Respiratory Rate 18 18 Blood Pressure [Le ft Arm] 135/86 129/76 Blood Pressure [Ri ght Upper Arm] Pulse Oximetry 93 92 92 Oxygen Delivery Me thod Room Air Room Air 09/17/23 07:00 09/17/23 07:00 09/17/23 07:00 Temperature 98.8 F Pulse Rate Pulse Rate [Left P ulse Oximeter] 127 H 127 H Respiratory Rate 24 24 24 Blood Pressure [Le ft Arm] 116/99 H Blood Pressure [Ri ght Upper Arm] Pulse Oximetry 92 92 Oxygen Delivery Me thod Room Air Room Air 09/17/23 11:00 Temperature 98.8 F Pulse Rate Pulse Rate [Left P ulse Oximeter] 107 H Respiratory Rate 20 Blood Pressure [Le ft Arm] 143/70 H Blood Pressure [Ri ght Upper Arm] Pulse Oximetry 91 Oxygen Delivery Me thod Room Air Labs Labs: Laboratory Results - last 24 hr 09/16/23 09/17/23 09/17/23 21:28 07:34 08:28 WBC 14.87 H 12.11 H RBC 5.78 5.58 Hgb 17.3 16.7 Hct 49.0 47.5 MCV 85 85 MCH 30 30 MCHC 35 35 RDW Coeff of Becca 13.0 Plt Count 373 367 Neut % (Auto) 83.0 H Lymph % (Auto) 9.5 L Christian % (Auto) 6.4 Eos % (Auto) 0.2 Baso % (Auto) 0.1 Neut # (Auto) 12.30 H Lymph # (Auto) 1.40 Christian # (Auto) 1.00 H Eos # (Auto) 0.00 Baso # (Auto) 0.00 Abs Immat Gran (auto) 0.10 Imm/Tot Granulo (auto) 0.8 Sodium 142 142 Potassium 3.8 4.3 Chloride 106 108 Carbon Dioxide 22 21 Anion Gap 14 13 BUN 15 19 Creatinine 0.8 0.8 Estimated Creat Clear 117.41 Estimated GFR 119 119 Glucose 161 H 171 H Calcium 10.2 10.4 Magnesium 2.2 SARS-CoV-2 (PCR) Negative SARS-CoV-2 Influenza Type A (PCR) Negative PCR FLU A Influenza Type B (PCR) Negative PCR FLU B RSV (PCR) Negative PCR RSV Group A Strep DNA NOT DETECTED Lab Acknowledgement 09/17/23 08:30 WBC RBC Hgb Hct MCV MCH MCHC RDW Coeff of Becca Plt Count Neut % (Auto) Lymph % (Auto) Christian % (Auto) Eos % (Auto) Baso % (Auto) Neut # (Auto) Lymph # (Auto) Christian # (Auto) Eos # (Auto) Baso # (Auto) Abs Immat Gran (auto) Imm/Tot Granulo (auto) Sodium Potassium Chloride Carbon Dioxide Anion Gap BUN Creatinine Estimated Creat Clear Estimated GFR Glucose Calcium Magnesium SARS-CoV-2 (PCR) Influenza Type A (PCR) Influenza Type B (PCR) RSV (PCR) Group A Strep DNA Lab Acknowledgement Test Added Imaging Chest x-ray: Attestation: I have reviewed the pertinent imaging results. Radiologist's impression: Chest x-ray done on the morning of 09/16/2023 and in the evening of 09/16/2023, both read out by radiologist as unremarkable. As I reviewed these x-rays indeed the morning x-ray is fairly unremarkable save the hyper aeration. The x-ray from the evening of 09/16/2023 actually demonstrates a pneumomediastinum as well as subcutaneous emphysema right greater than left neck bases.
[2023-09-17] MEDS: AZITHROMYCIN 250 MG TABLET 500 MG PO (15:21)
[2023-09-17] MEDS: cefTRIAXone 1 GM in 0.9 % SODIUM CHLORIDE Mini-bag 100 ML IVPB (16:27)
[2023-09-17] MEDS: BENZOCAINE/MENTHOL 1 EACH LOZENGE MUCOUS MEM (16:34)
--- NOTE | 2023-09-17 17:45 | PC.NURSE ---
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
[2023-09-17] MEDS: KETOROLAC 30 MG/ML inj IVP (20:20)
[2023-09-17] MEDS: LORazepam 0.5 MG TABLET PO (20:21)
[2023-09-18 02:57] VITALS: BP 119/66; PULSE 66; RESP 16; TEMP 36.7; O2SAT 92
[2023-09-18] MEDS: IPRAT-ALBUT 0.5-2.5 MG/3 ML NEB 1 NEB IH ×2 (05:22→11:20)
[2023-09-18 06:24] LABS: Eosinophils Percent Auto 0.1 % (0.0-7.0); Hematocrit 45.7 % (37.0-53.0); Hemoglobin* 15.8 gm/dL (13.5-17.5); Immature Granulocytes Pct Auto 0.2 %; Lymphocytes Percent Auto 5.9 % (20-44); Mean Corpuscular HGB Conc 35 gm/dL (32-36); Mean Corpuscular Hemoglobin 30 pg (26-34); Mean Corpuscular Volume 87 fL (80-100); Monocytes Percent Auto 5.1 % (0.0-11.0); Neutrophils Percent Auto 88.7 % (42.0-72.0); Platelet Count* 356 K/uL (140-440); RDW Coefficient of Variation % 13.6 % (11.5-15.5); Red Blood Count 5.26 m/uL (4.30-5.90); White Blood Count* 22.76 K/uL (4.50-11.00)
--- NOTE | 2023-09-18 06:31 | PC.NURSE ---
End of shift: A&O pleasant and cooperative. VSS w/ sats >90% on RA. LS wheezy on both inhalations and expiration. Denies SOB. Up at macey. Denying pain. Pt slept throughout shift. at bedside.
[2023-09-18 06:45] LABS: Slide Review Reflex Yes
[2023-09-18 06:57] LABS: Chloride* 107 mmol/L (96-114); Sodium* 140 mmol/L (135-149)
[2023-09-18 06:58] LABS: Potassium* 4.1 mmol/L (3.6-5.1)
[2023-09-18 07:00] VITALS: BP 108/67; PULSE 96; RESP 16; TEMP 36.7; O2SAT 94
[2023-09-18 07:00] LABS: Creatinine* 0.9 mg/dL (0.5-1.5); Est. Creatinine Clearance* 104.36; Estimated Glomerular Filt Rate 115 ml/min
[2023-09-18 07:01] LABS: Anion Gap 11 mEq/L (7-15); Blood Urea Nitrogen* 34 mg/dL (5-24); Calcium* 9.6 mg/dL (8.4-10.6); Carbon Dioxide* 22 mmol/L (20-32); Glucose* 134 mg/dL (60-115); Slide Review Acceptable Review (Acceptable)
[2023-09-18] MEDS: SODIUM CHLORIDE 0.9 % (FLUSH) 10 ML SYRINGE 5 ML IVF (08:32)
[2023-09-18] MEDS: METHYLPREDNISOLONE SOD SUCC 40 MG/ML IVP (08:32)
--- NOTE | 2023-09-18 10:07 | RESP.RT ---
Patient on room air. He has no questions around his respiratory questions. No respiratory needs noted at this time.
[2023-09-18 11:00] VITALS: BP 132/72; PULSE 98; RESP 16; O2SAT 91
[2023-09-18] MEDS: predniSONE 20 MG TABLET 40 MG PO (11:20)
--- NOTE | 2023-09-18 13:35 | PC.NURSE ---
PATIENT ALERT AND ORIENTED, UP IND IN ROOM, LUNGS SOUNDS INSP AND EXP WHEEZING, ENCOURAGED PATIENT TO WALK ABOUT ROOM, USE INSENTIVE SPIROMETER, IV REMOVED CATHETER INTACT, PATIENT AND VERBALIZED UNDERSTANDING OF DISCHARGE INFORMATION AND HAD NO FURTHER QUESTIONS AT THIS TIME, LEFT AROUND 1330.
--- NOTE | 2023-09-19 13:49 | PM.DS1 ---
DS: Providers Provider Time Seen by Provider: 11:00 Date Seen: 09/19/23 Date of admission: 09/16/23 22:51 Primary care physician: Laura Wilks MD Admitting Clinician: Maria Del Rosario Rios MD Consults: 09/16/23 23:04 Consult to Respiratory Therapy [CONS] Routine Comment: Reason(s) for RT Consult:: Consult Attending Physician on discharge: Ken Howard MD Date of Discharge: 09/18/23 DS: Diagnosis Discharge Diagnosis (1) Asthma with acute exacerbation: Status: Acute Problem details: - Solumedrol IV later transitioned to oral Prednisone - nebulizers, smoking cessation - loaded with magnesium - initiated azithromycin Z-Sukhjinder and later added ceftriazone IV when CT scan of chest indicated infiltrate consistent with CAP - stressed importance of smoking cessation, stopping marijuana smoking, stopping vaping, do what he can to maintain his general health as well as his lung health. (2) Cough: Status: Acute Problem details: - treat asthma exacerbation, pneumonia, seasonal allergies (3) URI (upper respiratory infection): Status: Acute Problem details: symptom management (4) Tobacco user: Status: Acute Problem details: - nicotine patch, prn Ativan while in hospital - patient understands the importance of quitting smoking (5) Seasonal allergic rhinitis: Status: Acute Problem details: - intranasal steroid and cetirizine po (6) Community acquired bilateral lower lobe pneumonia: Status: Acute Problem details: - CT scan 09/17/2023: 1. Extensive pneumomediastinum and subcutaneous emphysema. No obvious dehiscence of the wall of the trachea or esophagus. 2. Small amount of fluid in the anterior mediastinum could represent hematoma. 3. Small patchy ground-glass opacity in the right lower lobe may be infectious or inflammatory. - initially treated with the Z-Sukhjinder only. After CT scan we added ceftriaxone IV. At discharge he is to complete Z-Sukhjinder and complete a full course of the cephalosporin antibiotic. (7) Subcutaneous emphysema, non-traumatic: Status: Acute Problem details: - CT scan 09/17/2023: 1. Extensive pneumomediastinum and subcutaneous emphysema. No obvious dehiscence of the wall of the trachea or esophagus. 2. Small amount of fluid in the anterior mediastinum could represent hematoma. 3. Small patchy ground-glass opacity in the right lower lobe may be infectious or inflammatory. - Likely from cough and asthma exacerbation. - did not require additional intervention. Recommended follow-up with primary care physician, return to hospital sooner if necessary. (8) Acquired pneumomediastinum: Status: Acute Problem details: - CT scan 09/17/2023: 1. Extensive pneumomediastinum and subcutaneous emphysema. No obvious dehiscence of the wall of the trachea or esophagus. 2. Small amount of fluid in the anterior mediastinum could represent hematoma. 3. Small patchy ground-glass opacity in the right lower lobe may be infectious or inflammatory. - Likely from cough and asthma exacerbation. - CT scan of chest without contrast ordered, results pending. - anticipate will be able to monitor and not require additional intervention. - Likely from cough and asthma exacerbation. - did not require additional intervention. Recommended follow-up with primary care physician, return to hospital sooner if necessary. DS: Summary Hospital Course Hospital Course: History of present illness: ?Franki Mcadams is a 32 year old male who presented to the emergency room this evening for persistent difficulty breathing in the setting of an asthma exacerbation. He has been feeling poorly with shortness of breath and increased anxiety for the past 1-2 days. No recent travel, children have had URIs recently. 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 He presented to our ED this morning and responded well to a DuoNeb and was discharged home with prednisone. As the day has gone on, he has become progressively more short of breath and tachypneic; thus, returned to the emergency room. He has been taking his albuterol at home and his Symbicort. He has never been intubated. ER course and findings: - tachypneic on arrival, intermittent use of accessory muscles and 2-3 word dyspnea - improved after nebulization and IV Solu-Medrol - oxygen saturations 93% on room air Given worsening of exacerbation, tachypnea, and risk of decompensation, patient admitted to the hospital. Treatment proceeded as specified above. Day following admission I was able to find subcutaneous emphysema on physical exam. CT scan confirmed the same plus pneumomediastinum. He remained stable in that regard throughout the remainder of hospitalization. Responded fairly quickly to our intensified regimen as outlined above and is discharged home with followup as specified. Status at Discharge Functional status at discharge: independent ambulation Overall status at discharge: patient is progressing back to baseline Time Spent with Patient Time attestation: Total time spent providing and/or coordinating discharge services: Time spent: Greater than 30 minutes Exam Narrative: Exam Narrative: Examine him in his hospital room. On date of discharge he is comfortable and in no acute distress. Vision and hearing are adequate. Alert and oriented to self, place, time, situation. Friendly, articulate, cooperative. Appropriately anxious. Normal tympanic membranes. Midline nasal septum clear nasal discharge. Dentition in fair repair. Mild injection posterior pharynx without any exudate. Lungs are now clear to auscultation with scattered rhonchi that clear with cough. No longer wheezing. No obvious rales. On his chest exam, I can still feel subcutaneous emphysema. Heart tones with regular rhythm, normal S1-S2, without murmur, gallop, rub. Abdomen with active bowel sounds, soft, nontender. Moves all 4 extremities. Independent with transfer, station, gait. Skin warm, dry, intact. No rashes, petechiae, cyanosis. Const: Documenting provider has reviewed patient's vital signs: yes DS: Data Imaging CT scan - chest: Attestation: I have reviewed the pertinent imaging results. Radiologist's impression: IMPRESSION: 1. Extensive pneumomediastinum and subcutaneous emphysema. No obvious dehiscence of the wall of the trachea or esophagus. 2. Small amount of fluid in the anterior mediastinum could represent hematoma. 3. Small patchy ground-glass opacity in the right lower lobe may be infectious or inflammatory. Discharge Plan Discharge Disposition: Home, Self-Care Date of Admission: 09/16/23 22:51 Attending Provider on Discharge: Ken Howard Primary Care Provider: Laura Wilks Condition: Improved Anticipated Discharge Date/Time: 09/18/23 01:00 Discharge Medications: New ipratropium-albuterol 0.5 mg-3 mg(2.5 mg base)/3 mL Solution For Nebulization 3 ml inhalation QID Qty: 90 1RF Rx Instructions: Take 4 times daily on scheduled basis for 5 days, then resume 4 times daily as needed nicotine 14 mg/24 hr Patch 24 Hour 1 patch transdermal HS Qty: 28 1RF nicotine (polacrilex) 2 mg Gum 2 mg buccal Q1H PRNQty: 40 1RF azithromycin 250 mg Tablet 250 mg PO Q24H Qty: 3 0RF Taper: Z-SUKHJINDER 250 mg Q24H for 3 Days and 0 Hour cefpodoxime 200 mg tablet 200 mg PO BID Qty: 14 0RF Rx Instructions: must administer with a meal/food fluticasone propionate [Flonase Allergy Relief] 50 mcg/actuation spray,suspension 1 spray intranasal BID Qty: 16 2RF Rx Instructions: administer into each nostril Continued dextroamphetamine-amphetamine 10 mg tablet 15 - 20 mg PO BID@08,14 Rx Instructions: TAKE 2 TABLETS BY MOUTH EVERY MORNING AND 1.5 IN THE EARLY AFTERNOON testosterone cypionate 200 mg/mL oil 40 mg IM Q7D albuterol sulfate [Ventolin HFA] 90 mcg/actuation HFA aerosol inhaler 1 - 2 puff INHALATION Q4H PRN budesonide-formoterol [Symbicort] 160-4.5 mcg/actuation HFA aerosol inhaler 2 puff INHALATION BID prednisone 20 mg tablet 40 mg PO DAILY Qty: 8 1RF hydroxyzine HCl 25 mg tablet 25 mg PO Q6H PRN lorazepam 1 mg tablet 1 mg PO HS PRN ondansetron 4 mg tablet,disintegrating 4 mg PO Q8H PRN (Reason: nausea/vomiting) cetirizine [24Hour Allergy] 10 mg tablet 10 mg PO DAILY PRN Held ipratropium-albuterol 0.5 mg-3 mg(2.5 mg base)/3 mL solution for nebulization 3 ml INHALATION QID PRN (Reason: wheezing) Hold Instructions: Resume on 09/23/23. Discharge Orders: Discharge Order (Routine); Ordered 09/18/23 Ordered By: Ken Howard Patient Education: Azithromycin (By mouth) (Zithromax, Zithromax Tri-Sukhjinder, Zithromax..., Nicotine (Absorbed through the skin), Cefpodoxime Proxetil (By mouth), Ipratropium/Albuterol (By breathing), Fluticasone (Into the nose), Asthma (DC), How to Stop Smoking (DC), Community Acquired Pneumonia (DC), How to Use a Nebulizer (DC), EVALI (E-cigarette or Vaping-Associated Lung Injury) (DC) Activity Level: No Restrictions and Activity as Tolerated Activity Detail: 1. May return to work without any restrictions or limitations on Saturday, 23 September 2023 - note written on your behalf; 2. Optimize your breathing environment: attempt to minimize breathing smoke of any kind; stop any and all types of smoking; optimize treatment of seasonal allergies proactively and during season; optimize exposure to other allergens, such as animal dander, dust, etc; minimize exposure to aerosols, perfumes, petroleum products, other strong orders; consider use of air purifier system; minimize exposure to other aggravating stimuli, such as breathing cold air; etc. 3. Follow-up with your primary care physician or one of her/his partners in 2-7 days; 4. Prescription for new nebulizer written on your behalf. Discharge Diet: Regular Follow Up Appointments: Provider,Not a Local [Referring] - Laura Wilks MD [Primary Care Provider] - 10/03/23 12:45 am ([facility] for follow-up.) Forms: Work/School Release, [facility] Info Instructions
== END 2023-09-18 13:30 | disposition home or self-care (01) ==
LOC: ED 22:43 → MEDSURG 22:53
PROVIDERS: Internal Medicine; Admitting Provider Family Medicine; Emergency Provider Emergency Medicine Emergency Medical Services; PCP Family Medicine; Visit Provider Family Medicine
DX: J45.901 Unspecified asthma with (acute) exacerbation (principal); Z72.0 Tobacco use; J18.9 Pneumonia, unspecified organism; J98.2 Interstitial emphysema; R05.1 Acute cough; J06.9 Acute upper respiratory infection, unspecified; J30.2 Other seasonal allergic rhinitis; J82.83 Eosinophilic asthma
CPT/HCPCS: 36415; 71045; 71250; 80048; 83735; 85025; 85027; 87631; 87651; 94640; 94761; 96365; 96366; 96367; 96375; 96376; 99284; A9270; G0378; J0696; J1885; J2920; J2930; J3475; J7512; S4990

== ENCOUNTER 2024-09-10 14:36 | Emergency (ER) | payer OTHER, SELFPAY ==
[2024-09-10 14:42] VITALS: BP 123/67; PULSE 61; RESP 18; TEMP 37.4; O2SAT 96; BMI 26.6
--- NOTE | 2024-09-10 15:02 | ED.UPPEXIN ---
HPI - Extremity Injury (Upper) General Time Seen by Provider: 15:02 Date Seen: 09/10/24 Chief Complaint: Extremity Pain/Injury, Upper Stated Complaint: R shoulder pain Time Seen by Provider: 09/10/24 15:02 Source: patient and RN notes reviewed Mode of arrival: ambulatory Limitations: no limitations History of Present Illness HPI narrative: This 33-year-old transgender male is coming in with right shoulder pain. He points to the lateral upper aspect of the shoulder where the pain is. He started having pain about 4 days ago but last night was worsening. 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 No numbness or tingling in the arm. Pain is quite severe, tried to call his doctor today and could not get in. Related Data Home Medications ?Medication ?Instructions ?Recorded ?Confirmed albuterol sulfate 90 mcg/actuation 1 - 2 puff inhalation Q4H PRN 03/13/23 09/16/23 aerosol inhaler (Ventolin HFA) budesonide-formoterol HFA 160 2 puff inhalation BID 03/13/23 09/16/23 mcg-4.5 mcg/actuation aerosol inhaler (Symbicort) dextroamphetamine-amphetamine 10 15 - 20 mg PO BID@08,14 03/13/23 09/17/23 mg tablet testosterone cypionate 200 mg/mL 40 mg IM Q7D 03/13/23 09/16/23 intramuscular oil ipratropium 0.5 mg-albuterol 3 mg 3 ml inhalation QID PRN wheezing 09/16/23 09/16/23 (2.5 mg base)/3 mL nebulization soln cetirizine 10 mg tablet (24Hour 10 mg PO DAILY PRN 09/17/23 09/17/23 Allergy) hydroxyzine HCl 25 mg tablet 25 mg PO Q6H PRN 09/17/23 09/17/23 lorazepam 1 mg tablet 1 mg PO HS PRN 09/17/23 09/17/23 ondansetron 4 mg disintegrating 4 mg PO Q8H PRN nausea/vomiting 09/17/23 09/17/23 tablet Previous Rx's ?Medication ?Instructions ?Recorded prednisone 20 mg tablet 40 mg (2 x 20 mg) PO DAILY #8 tabs 09/16/23 azithromycin 250 mg tablet 250 mg PO Q24H #3 tabs 09/18/23 cefpodoxime 200 mg tablet 200 mg PO BID #14 tabs 09/18/23 fluticasone propionate 50 1 spray intranasal BID #16 grams 09/18/23 mcg/actuation nasal spray,suspension (Flonase Allergy Relief) ipratropium 0.5 mg-albuterol 3 mg 3 ml inhalation QID #90 mL 09/18/23 (2.5 mg base)/3 mL nebulization soln nicotine (polacrilex) 2 mg gum 2 mg buccal Q1H PRN #40 ea 09/18/23 nicotine 14 mg/24 hr daily 1 patch transdermal HS #28 ea 09/18/23 transdermal patch ketorolac 10 mg tablet 10 mg PO Q6H PRN pain #20 tabs 09/10/24 oxycodone 5 mg tablet 5 mg PO QHS PRN pain #7 tabs 09/10/24 Allergies Allergy/AdvReac Type Severity Reaction Status Date / Time sertraline [From Zoloft] Allergy Severe Asthma Verified 09/10/24 14:41 morphine Allergy Mild Anxiety Verified 09/10/24 14:41 Review of Systems Narrative: As per HPI. PFS PFSH Medical History Anxiety ?F41.9 - Anxiety disorder, unspecified (ICD-10) ADHD ?F90.9 - Attention-deficit hyperactivity disorder, unspecified type (ICD-10) Transgender man on hormone therapy ?F64.0 - Transsexualism (ICD-10) ?Z79.899 - Other half-way (current) drug therapy (ICD-10) Surgical History H/O mastectomy ?Z90.10 - Acquired absence of unspecified breast and nipple (ICD-10) Social History Narrative: Lives with partner Brie (MDM if needed). 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 + smoker, very motivated to quit. No ETOH currently. Full Code. What is your current living situation?: I presently have a place to live Problems where you live: no known problems Problems where you live details: N/A In the past 12 months, utilities in danger of being shut off: no In past 12 months, lack of transportation kept you from medical appts, meetings, work, or getting things needed for daily living: no In the past 12 mos, have been you worried that your food would run out before you had money to buy more?: never true In the past 12 mos, the food you bought just didn't last and you didn't have money to buy more?: never true Highest level of school completed/degree received: decline to answer Smoking Status: Current every day smoker What tobacco products do you use: cigarettes Second hand tobacco smoke exposure: Yes How often do you have a drink containing alcohol: monthly or less AUDIT-C Alcohol total score: 1 Non-prescribed substance use: marijuana (any form) Caffeine: Yes How often does anyone, including family, friends and others, physically hurt you: never How often does anyone, including family, friends and others, insult or talk down to you: never How often does anyone, including family, friends and others, threaten you with harm: never How often does anyone, including family, friends and others, scream or curse at you: never service: No Exam Const: Vital Signs, click to edit/add: Vital Signs - 24 hr 09/10/24 14:42 Temperature 99.4 F Pulse Rate [Pulse Oximeter] 61 Respiratory Rate 18 Blood Pressure [Le ft Upper Arm] 123/67 Pulse Oximetry 96 Oxygen Delivery Me thod Room Air Albert is a very pleasant 33-year-old male. He is alert, interactive, no apparent distress but does seem like he is in some discomfort. No midline tenderness of his neck, no paraspinous tenderness. The distal clavicle is somewhat tender along the AC joint. Glenohumeral joint seems mildly tender on the right. Left side is nontender. Arc of abduction is limited at 90?, pain starts just a little bit before 90? and cannot abduct the arm higher than that. There is definite impingement changes, with impingement testing patient actually starts to feel quite hot, does cause the patient significant pain. Patient states that he absolutely does not want to reach behind his back, he admits that he had to have his partner wipe this morning. I feel no effusion of the shoulder. Range of motion of the shoulder is limited in does have changes consistent with rotator cuff pathology. Isolation of the elbow reveals normal flexion extension supination pronation. There is no tenderness over the elbow. Forearm down to the fingers is normal with orthopedic examination, no tenderness, no swelling, no limitation of joint range of motion. Distal neurovascular is intact, sensation normal. Radial pulses excellent. Documenting provider has reviewed patient's vital signs: yes Course Course ED Course: Reviewed with patient that I certainly have concerns for shoulder pathology and potentially rotator cuff. Given the sports history with pitching, this does height my suspicion. Will start with x-ray images of the shoulder. Patient does not want anything that is going to limit ability to drive or work. Will consider this. Patient is not requesting any pain management at this time, does feel he can go to x-ray. Reviewed with patient that he is likely going to need to see orthopedics in follow-up, will discuss this further once I have seen the x-rays and they have been read by Radiology. Reevaluation(s) Time of Reevaluation #1: 15:58 Reevaluation #1: Have reviewed with patient that the x-ray of the shoulder is looking quite good. This does not tell us any status of rotator cuff tendons are bursal involvement. Exam is consistent with rotator cuff pathology. Will do Toradol 30 mg IM. 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 Do think this is appropriate as there may be reaction issues if needing to stop or do something quickly with use of right arm. Pain may mediate a quick response. Vital Signs Vital signs: Initial Vital Signs Temperature 99.4 F 09/10/24 14:42 Temperature Source Temporal Artery Scan 09/10/24 14:42 Pulse Rate 61 09/10/24 14:42 Pulse Rhythm Regular 09/10/24 14:42 Respiratory Rate 18 09/10/24 14:42 Blood Pressure 123/67 09/10/24 14:42 Blood Pressure Mean 85 09/10/24 14:42 Blood Pressure Position Sitting 09/10/24 14:42 Pulse Oximetry 96 09/10/24 14:42 Oxygen Delivery Method Room Air 09/10/24 14:42 Vital Signs Temperature 99.4 F 09/10/24 14:42 Pulse Rate 61 09/10/24 14:42 Respiratory Rate 18 09/10/24 14:42 Blood Pressure 123/67 09/10/24 14:42 Pulse Oximetry 96 09/10/24 14:42 Oxygen Delivery Method Room Air 09/10/24 14:42 Temperature 99.4 F 09/10/24 14:42 Pulse Rate 61 09/10/24 14:42 Respiratory Rate 18 09/10/24 14:42 Blood Pressure 123/67 09/10/24 14:42 Pulse Oximetry 96 09/10/24 14:42 Oxygen Delivery Method Room Air 09/10/24 14:42 MDM - Extremity Injury (Upper) Imaging Data XR right shoulder: Attestation: I have reviewed the pertinent imaging results. My impression: Right shoulder x-ray looks normal to me. Radiologist's impression: Patient: ALBERT MCKOY Facility:?[facility] Patient ID:?[id number] Site Patient ID:?[id number]. Site :?1990 Study:?XRay-Shoulder Right 3V-09/10/2024 3:25:51 PM Ordering Physician:?Sophia Becerra Final Report: Indication: Shoulder pain Technique: Right shoulder 4 views Comparison: None Findings: Bones: Alignment is normal. No fractures or bone lesions. Joint spaces: The glenohumeral and AC joints and the subacromial space are preserved. No significant degenerative changes. Soft tissues: Unremarkable. Impression: Unremarkable right shoulder. Dictated by Bandar London MD @ 09/10/2024 3:31:51 PM (Electronic Signature) Discharge Plan Discharge Clinical Impression: Acute pain of right shoulder Patient Disposition: Home, Self-Care Condition: Stable Instructions: Shoulder Pain (ED), Shoulder Impingement Syndrome (ED) Additional Instructions: Continue with ice to help decrease pain. Can use Tylenol 1000 mg 3 times a day baseline for pain. Will prescribe Toradol, do not use ibuprofen with this. Once the Toradol as done, transition back to ibuprofen with the Tylenol. Will give a few tablets of oxycodone to be used before bed. Cannot use the oxycodone if operating machinery or driving. Need to contact Orthopedic office for follow-up. Phone number is [phone]. Activity Level: No Restrictions Prescriptions: New ketorolac 10 mg tablet 10 mg PO Q6H PRN (Reason: pain) Qty: 20 0RF Rx Instructions: maximum total duration of 5 days from all oral, intranasal, or parenteral formulations oxycodone 5 mg tablet 5 mg PO QHS PRN (Reason: pain) Qty: 7 0RF No Action dextroamphetamine-amphetamine 10 mg tablet 15 - 20 mg PO BID@08,14 Rx Instructions: TAKE 2 TABLETS BY MOUTH EVERY MORNING AND 1.5 IN THE EARLY AFTERNOON testosterone cypionate 200 mg/mL oil 40 mg IM Q7D albuterol sulfate [Ventolin HFA] 90 mcg/actuation HFA aerosol inhaler 1 - 2 puff INHALATION Q4H PRN budesonide-formoterol [Symbicort] 160-4.5 mcg/actuation HFA aerosol inhaler 2 puff INHALATION BID ipratropium-albuterol 0.5 mg-3 mg(2.5 mg base)/3 mL solution for nebulization 3 ml INHALATION QID PRN (Reason: wheezing) Hold Instructions: Resume on 09/23/23. prednisone 20 mg tablet 40 mg PO DAILY Qty: 8 1RF hydroxyzine HCl 25 mg tablet 25 mg PO Q6H PRN lorazepam 1 mg tablet 1 mg PO HS PRN ondansetron 4 mg tablet,disintegrating 4 mg PO Q8H PRN (Reason: nausea/vomiting) cetirizine [24Hour Allergy] 10 mg tablet 10 mg PO DAILY PRN ipratropium-albuterol 0.5 mg-3 mg(2.5 mg base)/3 mL Solution For Nebulization 3 ml inhalation QID Qty: 90 1RF Rx Instructions: Take 4 times daily on scheduled basis for 5 days, then resume 4 times daily as needed nicotine 14 mg/24 hr Patch 24 Hour 1 patch transdermal HS Qty: 28 1RF nicotine (polacrilex) 2 mg Gum 2 mg buccal Q1H PRNQty: 40 1RF azithromycin 250 mg Tablet 250 mg PO Q24H Qty: 3 0RF Taper: Z-NIK 250 mg Q24H for 3 Days and 0 Hour cefpodoxime 200 mg tablet 200 mg PO BID Qty: 14 0RF Rx Instructions: must administer with a meal/food fluticasone propionate [Flonase Allergy Relief] 50 mcg/actuation spray,suspension 1 spray intranasal BID Qty: 16 2RF Rx Instructions: administer into each nostril Follow Up/Referrals: Laura Wilks MD [Primary Care Provider] - Stand Alone Forms: [employer] Info Instructions
--- NOTE | 2024-09-10 15:07 | CRLHL7_ITS ---
For Patients: As a result of the Century Cures Act, medical imaging exams and procedure reports are released immediately into your electronic medical record. You may view this report before your referring provider. If you have questions, please contact your health care provider. Indication: Shoulder pain Technique: Right shoulder 4 views Comparison: None Findings: Bones: Alignment is normal. No fractures or bone lesions. Joint spaces: The glenohumeral and AC joints and the subacromial space are preserved. No significant degenerative changes. Soft tissues: Unremarkable. Impression: Unremarkable right shoulder. Dictated by Bandar London MD @ 09/10/2024 3:31:51 PM (Electronically Signed)
[2024-09-10] MEDS: KETOROLAC 30 MG/ML inj IM (16:44)
== END 2024-09-10 16:53 | disposition home or self-care (01) ==
PROVIDERS: Emergency Provider Family Medicine; PCP Family Medicine; Visit Provider Family Medicine
DX: M25.511 Pain in right shoulder (principal); X50.3XXA Overexertion from repetitive movements, initial encounter
CPT/HCPCS: 73030; 96372; 99283; J1885

== ENCOUNTER 2024-09-14 15:17 | Outpatient (CLI) | payer OTHER, SELFPAY | END 2024-09-14 15:18 | disposition home or self-care (01) | LOC: NFLDREF 09-17 08:41 | PROVIDERS: PCP Family Medicine; Referring Provider Family Medicine; Visit Provider Physician Assistant | DX: M25.511 Pain in right shoulder (principal); M89.8X1 Other specified disorders of bone, shoulder | CPT/HCPCS: 85025; 85651; 86140 ==

== ENCOUNTER 2024-09-18 07:02 | Outpatient (CLI) | payer OTHER, SELFPAY ==
--- NOTE | 2024-09-18 07:15 | MR_ITS ---
[address] [address] Phone:?[phone] Fax:?[phone] Referring Physician Information: Heidi Durham [address] [facility] [address] Phone:?[phone] Fax:?[phone] Patient:?Franki Mcadams D.O.B:?1990 Sex:?Male Phone:?[phone] [facility] MRN:?[id number] Exam Date:?09/18/2024 EXAM: MRI of the RIGHT SHOULDER, without contrast CLINICAL INFORMATION: Male, 33 years old, with right shoulder pain. INDICATION: Evaluate shoulder pain. PRIOR SURGERY: None reported. PLAIN FILMS: None available. COMPARISONS: No prior MRIs available. TECHNICAL INFORMATION: Using a 1.5T MR scanner and a localizing surface coil: coronal obliques: PD, T2, STIR sagittal obliques: PD, T2 axials: PD, T2 SEDATION: None CONTRAST: None FINDINGS: Bones: Proximal humerus: No fracture or marrow edema/pathology. No humeral Hill-Sachs or reverse Hill-Sachs lesion/impaction or contusion. Glenoid: No fracture or marrow edema/pathology. No osseous Bankart lesion. Rotator cuff and muscles/tendons: Supraspinatus: Mild supraspinatus tendinopathy, without tendon tear or muscle atrophy. Infraspinatus: Mild infraspinatus tendinopathy, without tendon tear or muscle atrophy. Teres minor: No tendinopathy, tear or atrophy. Subscapularis: No tendinopathy, tear or atrophy. Deltoid: No strain or atrophy. Coracoacromial arch: Acromion morphology: The acromion has type II morphology. No discrete subacromial osseous spur or os acromiale. Acromiohumeral space: The acromiohumeral space measures 5.9 mm at its narrowest point (osseous distance). Coracohumeral space: The coracohumeral space is within normal limits. Acromioclavicular joint: Joint: Mild AC joint arthropathy, with moderate subchondral edema and cystic change in the distal end of the clavicle (axial T2 series 4 image 8 and coronal STIR series 5 image 13). Ligaments: Coracoclavicular ligaments are intact. Bursae: Subacromial-subdeltoid: Mild subacromial-subdeltoid bursal thickening/edema. Subcoracoid: No convincing subcoracoid bursal thickening/bursitis. Biceps tendon: The long head of the biceps tendon is present within the bicipital groove. The intra-articular and extra-articular segments are intact without tendinosis, tenosynovitis, or displacement. Glenohumeral joint: Effusion/cyst: No significant glenohumeral joint effusion. Articular cartilage: Humeral head: No osteochondral abnormalities. Glenoid: No osteochondral abnormalities. Loose bodies: No discrete intra-articular body within the joint. Labrum:?No discrete SLAP tear. No other definite evidence for labral tear. No paralabral ganglion cyst is identified. Inferior glenohumeral ligament/axillary pouch:?Mild thickening of inferior capsuloligamentous structures (coronal PD series 6 images 16-20). Additionally, there is soft tissue thickening throughout the rotator interval (sagittal PD series 8 images 7-12). IMPRESSION: 1. Mild AC joint arthropathy with additional findings suggestive of early distal clavicular osteolysis. 2. Mild supraspinatus & infraspinatus tendinopathy. No rotator cuff tendon tear. 3. Mild narrowing of the acromiohumeral space with mild subacromial-subdeltoid bursal inflammation. 4. Findings in keeping with any clinical symptoms of adhesive capsulitis. 5. No tendinopathy, displacement, or tear of the biceps long head tendon. 6. No labral tear or paralabral cyst. BC Electronically signed on 09/18/2024 1:11:00 PM by Zane Klein M.D.
--- NOTE | 2024-09-18 07:45 | MR_ITS ---
[address] [address] Phone:?[phone] Fax:?[phone] Referring Physician Information: Heidi Durham [address] [facility] [address] Phone:?[phone] Fax:?[phone] Patient:?Franki Mcadams D.O.B:?1990 Sex:?Male Phone:?[phone] [facility] MRN:?[id number] Exam Date:?09/18/2024 EXAM: MRI of the RIGHT CLAVICLE, without contrast CLINICAL: 33-year-old with right shoulder/clavicle pain. INDICATION: Evaluate clavicle pain. PRIOR SURGERY: None reported. PLAIN FILMS: None available. COMPARISON: No prior MRIs available. TECHNICAL: Using a 1.5T MR scanner: coronals: STIR sagittals: T1, PD, T2FS axials: T1, PD, T2FS INTERPRETATION: Clavicle: Moderate-marked edema-like signal involving the medial end of the clavicle with appearance suggestive of a nondisplaced subchondral fracture near the SC joint (coronal STIR series 8 image 15 and axial T2FS series 6 images 19 & 20). This is associated with posterior periosteal reaction. Sternoclavicular joints: Unremarkable, without chelsie arthropathy. No sternoclavicular joint effusion. Acromioclavicular joint: Mild AC joint arthropathy with moderate edema and subchondral cystic change in the distal end of the clavicle (coronal STIR series 8 image 15 and axial T2FS series 6 image 18) Soft tissues: Surrounding soft tissues are unremarkable, without masses or musculotendinous strain. Brachial plexus: The subjacent traversing brachial plexus is unremarkable in its MR appearance. CONCLUSION: 1. Marked contusion versus nondisplaced/incomplete subchondral stress/insufficiency fracture of the medial end of the clavicle near the SC joint. 2. Mild AC joint arthropathy with additional findings suggestive of superimposed distal clavicular osteolysis. 3. No sternoclavicular joint pathology or effusion. 4. No soft tissue abnormality. BC Electronically signed on 09/18/2024 1:15:00 PM by Zane Klein M.D.
== END 2024-09-18 07:03 | disposition home or self-care (01) ==
LOC: MRI 07:04
PROVIDERS: PCP Family Medicine; Visit Provider Physician Assistant
DX: M25.511 Pain in right shoulder (principal); M89.511 Osteolysis, right shoulder; M75.02 Adhesive capsulitis of left shoulder
CPT/HCPCS: 73218; 73221

== ENCOUNTER 2025-03-05 07:30 | Outpatient (RCR) | payer OTHER, SELFPAY | END 2025-04-21 13:30 | disposition home or self-care (01) | PROVIDERS: PCP Family Medicine; Visit Provider Orthopaedic Surgery | DX: M89.8X1 Other specified disorders of bone, shoulder (principal); M89.511 Osteolysis, right shoulder; M75.01 Adhesive capsulitis of right shoulder; Z51.89 Encounter for other specified aftercare | CPT/HCPCS: 97110; 97162 ==

== ENCOUNTER 2025-04-13 13:57 | Emergency (ER) | payer OTHER, SELFPAY ==
--- OUTSIDE RECORDS SUMMARY | 2025-04-13 13:59 | XMS_ITS | Encounter Summary ---
Author Organization [facility] Address [address] [place] [address] Care Team Providers Care Programmer Name Role Phone Laura Wilks MD Primary Care Provider [phone] Mat Ramirez Unavailable Irene Porter MD Unavailable [phone] Irene Porter MD Unavailable [phone] Lacie Jackson MD Unavailable [phone] Encounter Details Date Type Department Care Team (Late st Contact Info) Description 10/23/2019 [facility] Medical Advice Initial Department Mat Ramirez Social History Tobacco Use Types Packs/Day Years Used Date Smoking Tobacco: Some Days Smokeless Tobacco: Never Alcohol Use Standard Drinks/Week Comments Yes 0 (1 standard drink = 0.6 oz pur e alcohol) PHQ-2 Answer Date Recorded PHQ-2 Score 0 06/23/2019 Comments Unknown Sex and Gender Information Value Date Recorded Sex Assigned at Female 06/21/2019 10:44 PM CDT 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 Gender Identity Male 06/21/2019 10:44 PM CDT Sexual Orientation Not on file documented as of this encounter Plan of Treatment Not on file documented as of this encounter Visit Diagnoses Not on filedocumented in this encounter Care Teams Programmer Relationship Specialty Start Date End Date Laura Wilks MD [address] [place] [place] [address] PCP - General 12/10/18 Mat Ramirez Specialty Wine Fermenter Plastic Surgery 06/23/19 Irene Porter MD [address] [id number] Plastic Surgery 06/23/19 Irene Porter MD [address] [id number] Assigned Surgical Provider 09/16/20 07/15/21 Lacie Jackson MD [address] [place] [address] Assigned PCP 04/03/23 documented as of this encounter
--- OUTSIDE RECORDS SUMMARY | 2025-04-13 13:59 | XMS_ITS | Encounter Summary ---
Author Organization [facility] Address [address] [place] [address] Care Team Providers Care Railway Switchman Name Role Phone Laura Wilks MD Primary Care Provider [phone] Mat Ramirez Unavailable Irene Porter MD Unavailable [phone] Irene Porter MD Unavailable [phone] Lacie Jackson MD Unavailable [phone] Encounter Details Date Type Department Care Team (Late st Contact Info) Description 07/01/2019 [facility] Medical Advice [facility] Plastic and Reconstructive Surgery [address] [facility] [address] [place] [address] Irene Porter MD [address] [place] [address] [address] [place] [address] Social History Tobacco Use Types Packs/Day Years Used Date Smoking Tobacco: Some Days Smokeless Tobacco: Never Alcohol Use Standard Drinks/Week Comments Yes 0 (1 standard drink = 0.6 oz pur e alcohol) PHQ-2 Answer Date Recorded PHQ-2 Score 0 06/23/2019 Comments Unknown Sex and Gender Information Value Date Recorded Sex Assigned at Female 06/21/2019 10:44 PM CDT 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 Gender Identity Male 06/21/2019 10:44 PM CDT Sexual Orientation Not on file documented as of this encounter Plan of Treatment Not on file documented as of this encounter Visit Diagnoses Not on filedocumented in this encounter Care Teams Railway Switchman Relationship Specialty Start Date End Date Laura Wilks MD [facility] [address] [place] [address] PCP - General 12/10/18 Mat Ramirez Specialty Transformer Mechanic Plastic Surgery 06/23/19 Irene Porter MD [address] [id number] Plastic Surgery 06/23/19 Irene Porter MD [address] [place] [address] [id number] Assigned Surgical Provider 09/16/20 07/15/21 Lacie Jackson MD [address] [place] [address] Assigned PCP 04/03/23 documented as of this encounter
--- OUTSIDE RECORDS SUMMARY | 2025-04-13 13:59 | XMS_ITS | Encounter Summary ---
Author Organization [facility] Address [address] [place] [address] Care Team Providers Care Motor Vehicle Salesperson Name Role Phone Laura Wilks MD Primary Care Provider [phone] Mat Ramirez Unavailable Irene Porter MD Unavailable [phone] Irene Porter MD Unavailable [phone] Lacie Jackson MD Unavailable [phone] Encounter Details Date Type Department Care Team (Late st Contact Info) Description 09/16/2019 [facility] Medical Advice [facility] Plastic [facility] Re[facility] [address] [facility] 4th [place] [address] Irene Porter MD [address] [place] [address] [address] [place] [address] Social History Tobacco Use Types [...] PM CDT 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 Gender Identity Male 06/21/2019 10:44 PM CDT Sexual Orientation Not on file documented as of this encounter Plan of Treatment Not on file documented as of this encounter Visit Diagnoses Not on filedocumented in this encounter Care Teams Motor Vehicle Salesperson Relationship Specialty Start Date End Date Laura Wilks MD [facility] [address] [place] [address] PCP - General 12/10/18 Mat Ramirez Specialty Finisher Card Tender Plastic Surgery 06/23/19 Irene Porter MD [address] [id number] Plastic Surgery 06/23/19 Irene Porter MD [address] [place] [address] [id number] Assigned Surgical Provider 09/16/20 07/15/21 Lacie Jackson MD [address] [place] [address] Assigned PCP 04/03/23 documented as of this encounter
--- OUTSIDE RECORDS SUMMARY | 2025-04-13 13:59 | XMS_ITS | Encounter Summary ---
Author Organization [place] Address [address] [place] [address] Care Team Providers Care Hand Inserter Operator Name Role Phone Laura Wilks MD Primary Care Provider [phone] Mat Ramirez Unavailable Irene Porter MD Unavailable [phone] Irene Porter MD Unavailable [phone] Lacie [place] MD Unavailable [phone] Encounter Details Date Type Department Care Team (Late st Contact Info) Description 09/16/2019 [facility] [place] [facility] Plastic and Reconstructive Surgery 909 [facility] 4th [place] [address] Irene Porter MD [address] [place] [address] 195 [place] [address] Social History Tobacco Use Types [...] PM CDT 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 Gender Identity Male 06/21/2019 10:44 PM CDT Sexual Orientation Not on file documented as of this encounter Plan of Treatment Not on file documented as of this encounter Visit Diagnoses Not on filedocumented in this encounter Care Teams Hand Inserter Operator Relationship Specialty Start Date End Date Laura Wilks MD [facility] 1400 [place] [address] PCP - General 12/10/18 Mat Ramirez Specialty Title 1 Tutor Plastic Surgery 06/23/19 Irene Porter MD [address] [phone] Plastic Surgery 06/23/19 Irene Porter MD [address] [place] [address] [phone] Assigned Surgical Provider 09/16/20 07/15/21 Lacie [place] MD [address]305 [place] [address] Assigned PCP 04/03/23 documented as of this encounter
--- OUTSIDE RECORDS SUMMARY | 2025-04-13 13:59 | XMS_ITS | Encounter Summary ---
Author Organization [place] Address [address] [place] [address] Care Team Providers Care Bed Operator Name Role Phone Laura Wilks MD Primary Care Provider [phone] Mat Ramirez Unavailable Irene Porter MD Unavailable [phone] Irene Porter MD Unavailable [phone] Lacie [place] MD Unavailable [phone] Encounter Details Date Type Department Care Team (Late st Contact Info) Description 12/10/2019 [facility] [place] [facility] 909 [place] [address] Bety Koehler Social History Tobacco Use Types Packs/Day Years Used Date Smoking Tobacco: Some Days Smokeless Tobacco: Never Alcohol Use Standard Drinks/Week Comments Yes 0 (1 standard drink = 0.6 oz pur e alcohol) PHQ-2 Answer Date Recorded PHQ-2 Score 0 06/23/2019 Comments Unknown Sex and Gender Information Value Date Recorded Sex Assigned at Female 06/21/2019 10:44 PM CDT 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 Gender Identity Male 06/21/2019 10:44 PM CDT Sexual Orientation Not on file documented as of this encounter Plan of Treatment Not on file documented as of this encounter Visit Diagnoses Not on filedocumented in this encounter Care Teams Bed Operator Relationship Specialty Start Date End Date Laura Wilks MD [facility] [address] [place] [address] PCP - General 12/10/18 Mat Ramirez Specialty Mortgage Operations Manager Plastic Surgery 06/23/19 Irene Porter MD [address] [place] [address] [phone] Plastic Surgery 06/23/19 Irene Porter MD [address] [place] [address] [id number] Assigned Surgical Provider 09/16/20 07/15/21 [place] [address] [place] [address] Assigned PCP 04/03/23 documented as of this encounter
--- OUTSIDE RECORDS SUMMARY | 2025-04-13 13:59 | XMS_ITS | Encounter Summary ---
Author Organization [place] Address [address] [place] [address] Care Team Providers Care Boat Builder And Repairer Name Role Phone Laura Wilks MD Primary Care Provider Mat Ramirez Unavailable Irene Porter MD Unavailable [phone] Lacie [place] MD Unavailable [phone] Encounter Details Date Type Department Care Team (Late st Contact Info) Description 08/09/2022 [facility] [place] [facility] [address]th [place] [address] Zack Da Silva, FABIO Social History Tobacco Use Types Packs/Day Years Used Date Smoking Tobacco: Former Cigarettes Q uit: 12/12/2019 Smokeless Tobacco: Never Alcohol Use Standard Drinks/Week Comments Yes 0 (1 standard drink = 0.6 oz pur e alcohol) PHQ-2 Answer Date Recorded PHQ-2 Score 0 12/15/2019 Comments Unknown Sex and Gender Information Value Date Recorded Sex Assigned at Female 06/21/2019 10:44 PM CDT 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 No / Unsure 07/10/2022 9:39 PM CDT documented as of this encounter Plan of Treatment Not on file documented as of this encounter Visit Diagnoses Not on filedocumented in this encounter Care Teams Boat Builder And Repairer Relationship Specialty Start Date End Date Laura Wilks MD [facility] [address] [place] [address] PCP - General 12/10/18 Mat Ramirez Specialty Police Captain Senior Plastic Surgery 06/23/19 Irene Porter MD 420 [facility] 195 [place], [place] [phone] Plastic Surgery 06/23/19 Lacie [place] MD 3[address] [place] [address] Assigned PCP 04/03/23 documented as of this encounter
--- OUTSIDE RECORDS SUMMARY | 2025-04-13 13:59 | XMS_ITS | Encounter Summary ---
Author Organization [place] Address [address] [place] [address] Care Team Providers Care Hitcher Name Role Phone Laura Wilks MD Primary Care Provider [phone] Mat Ramirez Unavailable Irene Porter MD Unavailable [phone] Irene Porter MD Unavailable [phone] Lacie [place] MD Unavailable [phone] Reason for Visit * Reason Onset Date Comments Refill Request 12/28/2019 Encounter Details Date Type Department Care Team (Late st Contact Info) Description 12/28/2019 [facility] Plastic and Reconstructive Surgery 909 [facility] 4th [place] [address] Irene Porter MD [address] [place] [address] 195 [place] [address] Refill Request Social History Tobacco Use Types Packs/Day Years [...] PM CDT 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 Gender Identity Male 06/21/2019 10:44 PM CDT Sexual Orientation Not on file documented as of this encounter Plan of Treatment Not on file documented as of this encounter Visit Diagnoses Diagnosis Gender dysphoria in adolescent and adult documented in this encounter Care Teams Hitcher Relationship Specialty Start Date End Date Laura Wilks MD [facility] 1400 [place] [address] PCP - General 12/10/18 Mat Ramirze Specialty Trainmaster Plastic Surgery 06/23/19 Irene Porter MD [address] [address] Plastic Surgery 06/23/19 Irene Porter MD [address] [place] [address] [id number] Assigned Surgical Provider 09/16/20 07/15/21 Lacie [place] MD 3[address] [place] [address] Assigned PCP 04/03/23 documented as of this encounter
--- OUTSIDE RECORDS SUMMARY | 2025-04-13 13:59 | XMS_ITS | Encounter Summary ---
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 Gender Identity Male 06/21/2019 10:44 PM CDT Sexual Orientation Not on file documented as of this encounter Plan of Treatment Not on file documented as of this encounter Visit Diagnoses Not on filedocumented in this encounter Care Teams Shopper Insights Manager Relationship Specialty Start Date End Date Laura Wilks MD [address] [place] [address] PCP - General 12/10/18 Mat Ramirez Specialty Survey Compiler Plastic Surgery 06/23/19 Irene Porter MD [address] [phone] Plastic Surgery 06/23/19 Irene Porter MD [address] [phone] Assigned Surgical Provider 09/16/20 07/15/21 Lacie [place] MD [address] [place] [address] Assigned PCP 04/03/23 documented as of this encounter
--- OUTSIDE RECORDS SUMMARY | 2025-04-13 13:59 | XMS_ITS | Encounter Summary ---
Author Organization [place] Address [address] [place] [address] Care Team Providers Care Detonator Maker Name Role Phone Laura Wilks MD Primary Care Provider [phone] Mat Ramirez Unavailable Irene Porter MD Unavailable [phone] Lacie [place] MD Unavailable [phone] Encounter Details Date Type Department Care Team (Late st Contact Info) Description 08/09/2022 [facility] [facility] Re[facility] Clinic [address]th [place] [address] Zack Da Silva, FABIO Social [...] PM CDT 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
--- OUTSIDE RECORDS SUMMARY | 2025-04-13 13:59 | XMS_ITS | Encounter Summary ---
Author Organization [place] Address [address] [place] [address] Care Team Providers Care Chief Administrative Officer Name Role Phone Laura Wilks MD Primary Care Provider [phone] Mat Ramirez Unavailable Irene Porter MD Unavailable [phone] Irene Porter MD Unavailable [phone] Lacie [place] MD Unavailable [phone] Encounter Details Date Type Department Care Team (Late st Contact Info) Description 11/10/2019 [facility] Medical Advice [facility] Colon and Rectal Surgery 909 [facility] 4th [place] [address] Lia Chen, FABIO Social History Tobacco Use Types Packs/Day Years Used Date Smoking Tobacco: Some Days Smokeless Tobacco: Never Alcohol Use Standard Drinks/Week Comments Yes 0 (1 standard drink = 0.6 oz pur e alcohol) PHQ-2 Answer Date Recorded PHQ-2 Score 0 06/23/2019 Comments Unknown Sex and Gender Information Value Date Recorded Sex Assigned at Female 06/21/2019 10:44 PM CDT 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 Gender Identity Male 06/21/2019 10:44 PM CDT Sexual Orientation Not on file documented as of this encounter Plan of Treatment Not on file documented as of this encounter Visit Diagnoses Not on filedocumented in this encounter Care Teams Chief Administrative Officer Relationship Specialty Start Date End Date Laura Wilks MD [facility] [address] [place] [address] PCP - General 12/10/18 Mat Ramirez Specialty Design Coordinator Plastic Surgery 06/23/19 Irene Porter MD [address] [address] Plastic Surgery 06/23/19 Irene Porter MD [address] [address] Assigned Surgical Provider 09/16/20 07/15/21 Lacie [place] MD [address] [place] [address] Assigned PCP 04/03/23 documented as of this encounter
--- OUTSIDE RECORDS SUMMARY | 2025-04-13 13:59 | XMS_ITS | Encounter Summary ---
Author Organization [place] Address [address] [place] [address] Care Team Providers Care Diamond Wheel Molder Name Role Phone Laura Wilks MD Primary Care Provider [phone] Mat Ramirez Unavailable Irene Porter MD Unavailable [phone] Irene Porter MD Unavailable [phone] Lacie [place] MD Unavailable [phone] Encounter Details Date Type Department Care Team (Late st Contact Info) Description 01/06/2020 [facility] Medical Advice [facility] Plastic and Reconstructive Surgery 909 [facility] 4th [place] [address] Irene Porter MD [address] [place] [address] 195 [place] [address] Social History Tobacco Use Types [...] PM CDT 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 Gender Identity Male 06/21/2019 10:44 PM CDT Sexual Orientation Not on file documented as of this encounter Plan of Treatment Not on file documented as of this encounter Visit Diagnoses Not on filedocumented in this encounter Care Teams Diamond Wheel Molder Relationship Specialty Start Date End Date Laura Wilks MD [facility] 1400 [place] [address] PCP - General 12/10/18 Mat Ramirez Specialty Sales Technician Home Theater Plastic Surgery 06/23/19 Irene Porter MD [address] [phone] MD Plastic Surgery 06/23/19 Irene Porter MD [address] [phone] Assigned Surgical Provider 09/16/20 07/15/21 Lacie [place] MD [address] [place] [address] Assigned PCP 04/03/23 documented as of this encounter
--- OUTSIDE RECORDS SUMMARY | 2025-04-13 13:59 | XMS_ITS | Encounter Summary ---
Author Organization [place] Address [address] [place] [address] Care Team Providers Care Still Operator Gin Name Role Phone Laura Wilks MD Primary Care Provider [phone] Mat Ramirez Unavailable Irene Porter MD Unavailable [phone] Irene Porter MD Unavailable [phone] Lacie [place] MD Unavailable [phone] Encounter Details Date Type Department Care Team (Late st Contact Info) Description 01/01/2020 [facility] Medical Advice [facility] Plastic and Reconstructive Surgery 909 [facility] 4th [place] [address] Irene Porter MD [address] [place] [address] 195 [place] [address] Social History Tobacco Use Types [...] PM CDT 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 Gender Identity Male 06/21/2019 10:44 PM CDT Sexual Orientation Not on file documented as of this encounter Plan of Treatment Not on file documented as of this encounter Visit Diagnoses Not on filedocumented in this encounter Care Teams Still Operator Gin Relationship Specialty Start Date End Date Laura Wilks MD [facility] [address] [place] [address] PCP - General 12/10/18 Mat Ramirez Specialty Sports Therapist Plastic Surgery 06/23/19 Irene Porter MD [address] [phone] MD Plastic Surgery 06/23/19 Irene Porter MD [address] [phone] Assigned Surgical Provider 09/16/20 07/15/21 Lacie [place] MD [address] [place] [address] Assigned PCP 04/03/23 documented as of this encounter
--- OUTSIDE RECORDS SUMMARY | 2025-04-13 13:59 | XMS_ITS | Clinical Summary ---
Author Organization [place] Address [address] [place] [address] Care Team Providers Care Director Occupational Name Role Phone Laura Wilks MD Primary Care Provider [phone] Mat Ramirez Unavailable Irene Porter MD Unavailable [phone] Lacie [place] MD Unavailable [phone] Allergies Active Allergy Reactions Criticality Noted Date Comments Animal Dander 02/27/2018 Other reaction(s): Angioedema Wheezing; puffy face. Morphine Anxiety Low 05/02/2009 Panic attacks No Clinical Screening - See Comments Hives 03/01/2008 Other reaction(s): Edema, Respiratory Distress Sertraline Shortness Of Breath High 09/12/2017 O2 sats in 80's Wasp Venom Protein Anaphylaxis High 02/27/2018 Has EPI pen with in the wood. Medications testosterone cypionate (DEPOTESTOSTERO NE) 200 MG/ML injection Inject 50 mg into the muscle once a week On Tuesdays 9 Active albuterol (VENTOLIN HFA) 108 (90 Base) MCG/ACT inhaler INHALE 1 TO 2 PUFFS BY MOUTH EVERY 4 HOURS NEEDED 9 Active amphetamine-dex troamphetamine (ADDERALL) 10 MG tablet Take 2 tabs in the AM and 1 tab in the early afternoon. Do not fill until 06/10/19 9 Active budesonide-form oterol (SYMBICORT) 160-4.5 MCG/ACT Inhaler Inhale 2 puffs into the lungs daily 8 Active EPINEPHrine (EPIPEN 2-NIK) 0.3 MG/0.3ML injection 2-pack Inject 0.3 mg into the muscle 7 Active ondansetron (ZOFRAN-ODT) 4 MG ODT tab 9 Active pantoprazole (PROTONIX) 40 MG EC tablet Take 40 mg by mouth daily 8 Active hydrOXYzine (ATARAX) 25 MG tabletIndicatio ns:Gender dysphoria in adolescent and adult Take 1 tablet (25 mg) by mouth 3 times daily as needed for itching 20 tablet 0 Active Additional Information Patient not taking.Reported on 01/05/2020 ondansetron (ZOFRAN-ODT) 4 MG ODT tabIndications: Gender dysphoria in adolescent and adult Take 1 tablet (4 mg) by mouth every 8 hours as needed for nausea 15 tablet 0 Active Additional Information Patient not taking.Reported on 01/05/2020 ibuprofen (ADVIL/MOTRIN) 800 MG tablet Take 800 mg by mouth every 8 hours as needed for moderate pain Active oxyCODONE IR (ROXICODONE) 10 MG tabletIndicatio ns:Gender dysphoria in adolescent and adult Take 0.5-1 tablets (5-10 mg) by mouth every 6 hours as needed for severe pain 10 tablet 0 Active Additional Information Patient not taking.Reported on 04/29/2023 Active Problems Problem Noted Date Diagnosed Date Gender dysphoria in adolescent and adult 020 Overview (12/10/2019): Added automatically from request for surgery [id number] Social History Tobacco Use Types Packs/Day Years Used Date Smoking Tobacco: Former Cigarettes Q uit: 12/12/2019 Smokeless Tobacco: Never Tobacco Cessation:Counseling Given: Not Answered Alcohol Use Standard Drinks/Week Comments Yes 0 (1 standard drink = 0.6 oz pur e alcohol) PHQ-2 Answer Date Recorded PHQ-2 Score 2 04/29/2023 Adolescent Education Answer Date Record ed Getting School Help Needed Not on file 08/16 Comments No Sex and Gender Information Value Date Recorded Sex Assigned at Female 06/21/2019 10:44 PM CDT 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 Gender Identity Male 06/21/2019 10:44 PM CDT Sexual Orientation Not on file Last Filed Vital Signs Vital Sign Reading Time Taken Comments Blood Pressure 132/79 08/24/2023 4:51 PM CDT Pulse 61 08/24/2023 3:45 PM CDT Temperature 36.8 C (98.2 F) 08/24/2023 2:33 PM CDT Respiratory Rate 20 08/24/2023 2:33 PM CDT Oxygen Saturation 99% 08/24/2023 4:51 PM CDT Inhaled Oxygen Concentration - - Weight 68 kg (150 lb) 08/24/2023 2:33 PM CDT Height 166.4 cm (5' 5.5) 04/29/2023 8:45 AM CDT Body Mass Index 24.58 04/29/2023 8:45 AM CDT Plan of Treatment Health Maintenance Due Date Last Done Comments ADVANCE CARE PLANNING 1988 ANNUAL REVIEW OF HM ORDERS 1988 YEARLY PREVENTIVE VISIT 1991 PAP 04/01/2022 04/01/2019 DIABETES SCREENING 12/16/2022 12/16/2019 DTAP/TDAP/TD IMMUNIZATION (9 - Td or Tdap) 07/05/2024 07/05/2014, 06/01/2010, 05/30/2010, Additional history exists COVID-19 Vaccine ( season) 2024 PHQ-2 (once per calendar year) 2024 04/29/2023, 12/15/2019, 12/15/2019, Additional history exists INFLUENZA VACCINE (Season Ended) 2025 11/04/2019, 09/05/2017, 07/29/2016, Additional history exists ZOSTER IMMUNIZATION (1 of 2) 2038 HEPATITIS B IMMUNIZATION Completed 999, 01/28/1998, 07/30/1997 MENINGITIS IMMUNIZATION Completed 05/08/2006 Pneumococcal Vaccine: Pediatrics (0 to 5 Years) and At-Risk Patients (6 to 49 Years) Aged Out 09/19/2011 No longer eligible based on patient's age to complete this topic HEPATITIS C SCREENING Completed 05/02/2023, 022 HIV SCREENING Completed 05/02/2023, 03/25, 05/11/2022 HPV IMMUNIZATION Aged Out No longer e ligible based on patient's age to complete this topic Procedures Procedure Name Priority Date/Time Associated Diagnosis Comments GLUCOSE BY METER Routine 12/16/2019 11:0 6 AM CONCRETE VIBRATOR OPERATOR Gender dysphoria in adolescent and adult from Last 3 Months or Most Recently Relevant to Health Maintenance Results * (ABNORMAL) Glucose by meter (12/16/2019 11:06 AM CONCRETE VIBRATOR OPERATOR) Glucose 109(H) 70 - 99 mg/dL 12/16/2019 11:19 AM CONCRETE VIBRATOR OPERATOR POINT OF CARE TEST, GLUCOSE 12/16/2019 11:0 6 AM CONCRETE VIBRATOR OPERATOR 12/16/2019 11:19 AM CONCRETE VIBRATOR OPERATOR Irene Porter MD [facility] AZ[facility] POCT Final Result Performing Organization Address City/State/[facility] Co de Phone Number POINT OF CARE TEST, GLUCOSE from Last 3 Months or Most Recently Relevant to Health Maintenance Insurance [facility] Advance Directives For more information, please contact: [phone] * Full Code (Latest Code Status on File) Date Activated Date Inactivated Comments 12/16/2019 12:38 PM 01/01/2020 9:52 AM Question Answer Comments Code status determined by: Discussion with alecia nt/legal decision maker Care Teams Director Occupational Relationship Specialty Start Date End Date Laura Wilks MD [facility] [address] [place] [address] PCP - General 12/10/18 Mat Ramirez Specialty Aquaculture Director Plastic Surgery 06/23/19 Irene Porter MD [address] [address] Plastic Surgery 06/23/19 [place] [address] [place] [address] Assigned PCP 04/03/23
--- OUTSIDE RECORDS SUMMARY | 2025-04-13 13:59 | XMS_ITS | Encounter Summary ---
Author Organization [place] Address [address] [place] [address] Care Team Providers Care Hand Trucker Name Role Phone Laura Wilks MD Primary Care Provider [phone] Mat Ramirez Unavailable Irene Porter MD Unavailable [phone] Irene Porter MD Unavailable [phone] Lacie [place] MD Unavailable [phone] Encounter Details Date Type Department Care Team (Late st Contact Info) Description 09/11/2019 [facility] Medical Advice [facility] Plastic and Reconstructive Surgery 909 [facility] 4th [place] [address] Irene Porter MD [address] [place] [address] 195 [place] [address] Social History Tobacco Use Types [...] PM CDT 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 Gender Identity Male 06/21/2019 10:44 PM CDT Sexual Orientation Not on file documented as of this encounter Plan of Treatment Not on file documented as of this encounter Visit Diagnoses Not on filedocumented in this encounter Care Teams Hand Trucker Relationship Specialty Start Date End Date Laura Wilks MD [facility] 1400 [place] [address] PCP - General 12/10/18 Mat Ramirez Specialty Police Sergeant Precinct Plastic Surgery 06/23/19 Irene Porter MD [address] [id number] Plastic Surgery 06/23/19 Irene Porter MD [address] [place] [address] [phone] Assigned Surgical Provider 09/16/20 07/15/21 Lacie [place] MD [address] [place] [address] Assigned PCP 04/03/23 documented as of this encounter
[2025-04-13 14:22] VITALS: BP 146/92; PULSE 80; RESP 18; TEMP 37.1; O2SAT 97; BMI 25.8
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
[2025-04-13 14:47] LABS: Appearance Urine Cloudy (Clear); Bilirubin Urine Negative (Negative); Blood Urine 2+ (Negative); Color Urine Yellow (Yellow); Glucose Urine Negative (Negative); Ketones Urine Negative (Negative); Leukocyte Esterase Urine 2+ (Negative); Nitrite Urine Negative (Negative); Protein Urine 2+ (Negative); Specific Gravity Urine 1.015 (1.000-1.030); Urobilinogen Urine 0.2 (0.2-1.0); pH Urine 8.5 (5.0-8.5)
[2025-04-13] MEDS: PHENAZOPYRIDINE HCL 200 MG TABLET PO (14:53)
[2025-04-13 14:59] LABS: Squamous Epithelial Cell Urine Moderate (None-Few); WBC Urine 25-50 (0-5)
--- OUTSIDE RECORDS SUMMARY | 2025-04-13 15:01 | XMS_ITS | Encounter Summary ---
Author Organization [place] Address [address] [place] [address] Care Team Providers Care Physician Extender Name Role Phone Laura Wilks MD Primary Care Provider [phone] Mat Ramirez Unavailable Irene Porter MD Unavailable [phone] Irene Porter MD Unavailable [phone] Lacie Jackson MD Unavailable [phone] Encounter Details Date Type Department Care Team (Late st Contact Info) Description 01/06/2020 [facility] Medical Advice [facility] Plastic and Reconstructive Surgery [address] [facility] 4th [place] [address] Irene Porter MD [address] [place] [address] [address] [place] [address] Social History Tobacco Use Types [...] PM CDT 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 Gender Identity Male 06/21/2019 10:44 PM CDT Sexual Orientation Not on file documented as of this encounter Plan of Treatment Not on file documented as of this encounter Visit Diagnoses Not on filedocumented in this encounter Care Teams Physician Extender Relationship Specialty Start Date End Date Laura Wilks MD [facility] [address] [place] [address] PCP - General 12/10/18 Mat Ramirez Specialty Electrician Supervisor Plastic Surgery 06/23/19 Irene Porter MD [address] [id number] MD Plastic Surgery 06/23/19 Irene Porter MD [address] 973125 Assigned Surgical Provider 09/16/20 07/15/21 Lacie Jackson MD [address] [place] [address] Assigned PCP 04/03/23 documented as of this encounter
--- OUTSIDE RECORDS SUMMARY | 2025-04-13 15:01 | XMS_ITS | Encounter Summary ---
Author Organization [place] Address [address] [place] [address] Care Team Providers Care Eyelet Punch Operator Name Role Phone Laura Wilks MD Primary Care Provider [phone] Mat Ramirez Unavailable Irene Porter MD Unavailable [phone] Irene Porter MD Unavailable [phone] Lacie Jackson MD Unavailable [phone] Encounter Details Date Type Department Care Team (Late st Contact Info) Description 01/01/2020 MyC Medical Advice [facility] Plastic and Reconstructive Surgery [address] [facility] 4th [place] [address] Irene Porter MD [address] [place] [address] [address] [place] [address] Social History Tobacco Use Types [...] PM CDT 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 Gender Identity Male 06/21/2019 10:44 PM CDT Sexual Orientation Not on file documented as of this encounter Plan of Treatment Not on file documented as of this encounter Visit Diagnoses Not on filedocumented in this encounter Care Teams Eyelet Punch Operator Relationship Specialty Start Date End Date Laura Wilks MD [facility] [address] [place] [address] PCP - General 12/10/18 Mat Ramierz Specialty Funeral Driver Plastic Surgery 06/23/19 Irene Porter MD [address] [id number] MD Plastic Surgery 06/23/19 Irene Porter MD [address] [address] Assigned Surgical Provider 09/16/20 07/15/21 Lacie Jackson MD [address] [place] [address] Assigned PCP 04/03/23 documented as of this encounter
--- OUTSIDE RECORDS SUMMARY | 2025-04-13 15:01 | XMS_ITS | Encounter Summary ---
Author Organization [place] Address [address] [place] [address] Care Team Providers Care Hospice Massage Therapist Name Role Phone Laura Wilks MD Primary Care Provider [phone] Mat Ramirez Unavailable Irene Porter MD Unavailable [phone] Irene Porter MD Unavailable [phone] Lacie Jackson MD Unavailable [phone] Encounter Details Date Type Department Care Team (Late st Contact Info) Description 11/10/2019 MyC Medical Advice [facility] Colon and Rectal Surgery [address] [facility] 4th [place] [address] Lia Chen, FABIO Social History [...] PM CDT 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 Gender Identity Male 06/21/2019 10:44 PM CDT Sexual Orientation Not on file documented as of this encounter Plan of Treatment Not on file documented as of this encounter Visit Diagnoses Not on filedocumented in this encounter Care Teams Hospice Massage Therapist Relationship Specialty Start Date End Date Laura Wilks MD [facility] [address] [place] [address] PCP - General 12/10/18 Mat Ramirez Specialty Drilling Field Operator Plastic Surgery 06/23/19 Irene Porter MD [address] [address] Plastic Surgery 06/23/19 Irene Porter MD [address] [address] Assigned Surgical Provider 09/16/20 07/15/21 Lacie Jackson MD [address] [place] [address] Assigned PCP 04/03/23 documented as of this encounter
--- OUTSIDE RECORDS SUMMARY | 2025-04-13 15:01 | XMS_ITS | Clinical Summary ---
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 Gender Identity Male 06/21/2019 10:44 PM CDT [...] BY METER Routine 12/16/2019 11:0 6 AM VOICE INSTRUCTOR Gender dysphoria in adolescent and adult from Last 3 Months or Most Recently Relevant to Health Maintenance Results * (ABNORMAL) Glucose by meter (12/16/2019 11:06 AM VOICE INSTRUCTOR) Glucose 109(H) 70 - 99 mg/dL 12/16/2019 11:19 AM VOICE INSTRUCTOR POINT OF CARE TEST, GLUCOSE 12/16/2019 11:0 6 AM VOICE INSTRUCTOR 12/16/2019 11:19 AM VOICE INSTRUCTOR Irene Porter MD [facility] POCT Final Result Performing Organization Address City/State/[facility] Co de Phone Number POINT OF CARE TEST, GLUCOSE from Last 3 Months or Most Recently Relevant to Health Maintenance Insurance [facility] Advance Directives For more information, please contact: [phone] * Full Code (Latest Code Status on File) Date Activated Date Inactivated Comments 12/16/2019 12:38 PM 01/01/2020 9:52 AM Question Answer Comments Code status determined by: Discussion with alecia nt/legal decision maker Care Teams Lactation Specialist Relationship Specialty Start Date End Date Laura Wilks MD [facility] [address] [place] [address] PCP - General 12/10/18 Mat Ramirez Specialty Automobile Repair Service Estimator Plastic Surgery 06/23/19 Irene Porter MD [address] [address] Plastic Surgery 06/23/19 [place] [address] [place] [address] Assigned PCP 04/03/23
--- OUTSIDE RECORDS SUMMARY | 2025-04-13 15:01 | XMS_ITS | Encounter Summary ---
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
--- OUTSIDE RECORDS SUMMARY | 2025-04-13 15:01 | XMS_ITS | Encounter Summary ---
Author Organization [place] Address [address] [place] [address] Care Team Providers Care Earth Burner Name Role Phone Laura Wilks MD Primary Care Provider [phone] Mat Ramirez Unavailable Irene Porter MD Unavailable [phone] Irene Porter MD Unavailable [phone] Lacie Jackson MD Unavailable [phone] Encounter Details Date Type Department Care Team (Late st Contact Info) Description 07/01/2019 [facility] Medical Advice [facility] Plastic and Reconstructive Surgery [address] [facility] 4th [place] [address] Irene Porter MD [address] [place] [address] [address] [place] [address] Social History Tobacco Use Types [...] PM CDT 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 Gender Identity Male 06/21/2019 10:44 PM CDT Sexual Orientation Not on file documented as of this encounter Plan of Treatment Not on file documented as of this encounter Visit Diagnoses Not on filedocumented in this encounter Care Teams Earth Burner Relationship Specialty Start Date End Date Laura Wilks MD [facility] [address] [place] [address] PCP - General 12/10/18 Mat Ramirez Specialty Supervisor Force Adjustment Plastic Surgery 06/23/19 Irene Porter MD [address] [id number] Plastic Surgery 06/23/19 Irene Porter MD [address] [id number] Assigned Surgical Provider 09/16/20 07/15/21 Lacie Jackson MD [address] [place] [address] Assigned PCP 04/03/23 documented as of this encounter
--- OUTSIDE RECORDS SUMMARY | 2025-04-13 15:01 | XMS_ITS | Encounter Summary ---
Author Organization [facility] Address [address] [place] [address] Care Team Providers Care Structural Iron Worker Name Role Phone Laura Wilks MD Primary Care Provider [phone] Mat Ramirez Unavailable Irene Porter MD Unavailable [phone] Irene Porter MD Unavailable [phone] Lacie Jackson MD Unavailable [phone] Reason for Visit * Reason Onset Date Comments Refill Request 12/28/2019 Encounter Details Date Type Department Care Team (Late st Contact Info) Description 12/28/2019 MyC Refill [facility] Plastic and Reconstructive Surgery [address] [facility] 4th [place] [address] Irene Porter MD [address] [place] [address] [address] [place] [address] Refill Request Social History Tobacco [...] PM CDT 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 Gender Identity Male 06/21/2019 10:44 PM CDT Sexual Orientation Not on file documented as of this encounter Plan of Treatment Not on file documented as of this encounter Visit Diagnoses Diagnosis Gender dysphoria in adolescent and adult documented in this encounter Care Teams Structural Iron Worker Relationship Specialty Start Date End Date Laura Wilks MD [facility] [address] [place] [address] PCP - General 12/10/18 Mat Ramirez Specialty Glass Cut Off Supervisor Plastic Surgery 06/23/19 Irene Porter MD [address] [address] Plastic Surgery 06/23/19 Irene Porter MD [address] [place] [address] [id number] Assigned Surgical Provider 09/16/20 07/15/21 Lacie Jackson MD [address] [place] [address] Assigned PCP 04/03/23 documented as of this encounter
--- OUTSIDE RECORDS SUMMARY | 2025-04-13 15:01 | XMS_ITS | Encounter Summary ---
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 Gender Identity Male 06/21/2019 10:44 PM CDT Sexual Orientation Not on file documented as of this encounter Plan of Treatment Not on file documented as of this encounter Visit Diagnoses Not on filedocumented in this encounter Care Teams Brass Molder Helper Relationship Specialty Start Date End Date Laura Wilks MD [address] [place] [address] PCP - General 12/10/18 Mat Ramirez Specialty Corporate Executive Plastic Surgery 06/23/19 Irene Porter MD [address] [id number] Plastic Surgery 06/23/19 Irene Porter MD [address] [id number] Assigned Surgical Provider 09/16/20 07/15/21 Lacie Jackson MD [address] [place] [address] Assigned PCP 04/03/23 documented as of this encounter
--- OUTSIDE RECORDS SUMMARY | 2025-04-13 15:01 | XMS_ITS | Encounter Summary ---
Author Organization [facility] Address [address] [place] [address] Care Team Providers Care Steam Press Operator Name Role Phone Laura Wilks MD Primary Care Provider [phone] Mat Ramirez Unavailable Irene Porter MD Unavailable [phone] Lacie Jackson MD Unavailable [phone] Encounter Details Date Type Department Care Team (Late st Contact Info) Description 08/09/2022 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
--- OUTSIDE RECORDS SUMMARY | 2025-04-13 15:01 | XMS_ITS | Encounter Summary ---
Author Organization [facility] Address [address] [place] [address] Care Team Providers Care Proc Tech Name Role Phone Laura Wilks MD Primary Care Provider [phone] Mat Ramirez Unavailable Irene Porter MD Unavailable [phone] Irene Porter MD Unavailable [phone] Lacie Jackson MD Unavailable [phone] Encounter Details Date Type Department Care Team (Late st Contact Info) Description 09/16/2019 [facility] Medical Advice [facility] Plastic and Reconstructive Surgery [address] [facility] 4th [place] [address] Irene Porter MD [address] [place] [address] [address] [place] [address] Social History Tobacco Use Types [...] PM CDT 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 Gender Identity Male 06/21/2019 10:44 PM CDT Sexual Orientation Not on file documented as of this encounter Plan of Treatment Not on file documented as of this encounter Visit Diagnoses Not on filedocumented in this encounter Care Teams Proc Tech Relationship Specialty Start Date End Date Laura Wilks MD [facility] [address] [place] [address] PCP - General 12/10/18 Mat Ramirez Specialty Manager Pricing Plastic Surgery 06/23/19 Irene Porter MD [address] [id number] Plastic Surgery 06/23/19 Irene Porter MD [address] [place] [address] [phone] Assigned Surgical Provider 09/16/20 07/15/21 Lacie Jackson MD [address] [place] [address] Assigned PCP 04/03/23 documented as of this encounter
--- OUTSIDE RECORDS SUMMARY | 2025-04-13 15:01 | XMS_ITS | Encounter Summary ---
Author Organization [facility] Address [address] [place] [address] Care Team Providers Care Group Leader Semiconductor Testing Name Role Phone Laura Wilks MD Primary Care Provider [phone] Mat Ramirez Unavailable Irene Porter MD Unavailable [phone] Irene Porter MD Unavailable [phone] Lacie Jackson MD Unavailable [phone] Encounter Details Date Type Department Care Team (Late st Contact Info) Description 09/16/2019 [facility] [place] Plastic and Reconstructive Surgery [address] [facility] 4th [place] [address] Irene Porter MD [address] [place] [address] [address] [place] [address] Social History Tobacco Use Types [...] PM CDT 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 Gender Identity Male 06/21/2019 10:44 PM CDT Sexual Orientation Not on file documented as of this encounter Plan of Treatment Not on file documented as of this encounter Visit Diagnoses Not on filedocumented in this encounter Care Teams Group Leader Semiconductor Testing Relationship Specialty Start Date End Date Laura Wilks MD [facility] [address] [place] [address] PCP - General 12/10/18 Mat Ramirez Specialty Billet Sawyer Plastic Surgery 06/23/19 Irene Porter MD [address] [phone] Plastic Surgery 06/23/19 Irene Porter MD [address] [place] [address] [phone] Assigned Surgical Provider 09/16/20 07/15/21 Lacie Jackson MD [address] [place] [address] Assigned PCP 04/03/23 documented as of this encounter
--- OUTSIDE RECORDS SUMMARY | 2025-04-13 15:01 | XMS_ITS | Clinical Summary ---
Author Organization [facility] Address [address] [place] [address] Care Team Providers Care Community Development Aide Name Role Phone Laura Wilks MD Primary Care Provider Allergies Active Allergy Reactions Criticality Noted Date Comments Cats (Fur, Dander, Saliva) Angioedema 02/27/2018 Wheezing; puffy face. Canine Protein Containing Products Hives,Edema,Respirator y Distress 03/01/2008 Morphine Anxiety 05/02/2009 Panic attacks Venom-Wasp Anaphylaxis High 02/27/2018 Has EPI pen with in the wood. Sertraline Shortness Of Breath 09/12/2017 O2 sats in 80's Medications cetirizine (ZYRTEC) 10 mg tabletIndications :Allergic rhinitis, cause unspecified Take 1 tablet by mouth once daily. 90 tablet 3 12/17/19 15 Active NebulizerIndicati ons:Mild intermittent asthma without complication (HC) Nebulizer, disposable neb kit x 4, reuseable neb kit x 1, mask x 1, filters x 1. 1 Device 07/22/20 17 Active nicotine 14 mg/24 hr (NICODERM; HABITROL) 14 mg/24 hr patchIndications: Tobacco use Apply 1 Patch on dry, clean, hairless skin once daily. 28 Patch 3 03/23/20 22 Active nicotine 21 mg/24 hr (NICODERM; HABITROL) 21 mg/24 hr patchIndications: Tobacco use Apply 1 Patch on dry, clean, hairless skin once daily. 14 Patch 3 10/03/20 23 Active Syringe, Disposable, 1 mL syrgIndications:G robert dysphoria As directed 1 Device. 100 Each 12/19/19 24 Active Needle, Disp, 25 G 25 gauge x 3/4 ndleIndications:G robert dysphoria As directed. 100 Each 12/19/19 24 Active albuterol HFA (Ventolin HFA) 90 mcg/actuation inhalerIndication s:Moderate persistent asthma without complication (HC) INHALE 2 PUFFS BY MOUTH EVERY 4 HOURS NEEDED FOR SHORTNESS OF BREATH OR WHEEZING 18 g 2 05/15/20 24 Active dextroamphetamine -amphetamine (AdderalL) 10 mg tabletIndications :ADHD (attention deficit hyperactivity disorder), combined type 10 mg daily in morning, 5 mg in evening as needed for ongoing work. 45 Tablet 11/12/20 24 Active dextroamphetamine -amphetamine (AdderalL) 10 mg tabletIndications :ADHD (attention deficit hyperactivity disorder), combined type 10 mg daily in morning, 5 mg in evening as needed for ongoing work. 45 Tablet 12/11/19 25 Active dextroamphetamine -amphetamine (AdderalL) 10 mg tabletIndications :ADHD (attention deficit hyperactivity disorder), combined type 10 mg in the morning on work days, 5 mg in the afternoon as needed to focus 45 Tablet 01/10/20 25 Active levalbuterol (XOPENEX HFA) 45 mcg/actuation inhalerIndication s:Moderate persistent asthma without complication (HC) Inhale 1-2 Puffs by mouth every 4 hours if needed for Shortness Of Breath or Wheezing. 45 g 01/27/20 25 Active albuterol HFA (PRO-AIR; VENTOLIN; PROVENTIL) 90 mcg/actuation inhalerIndication s:Moderate persistent asthma without complication (HC) Inhale 1-2 Puffs by mouth every 4 hours if needed for Shortness Of Breath or Wheezing. Brand name ventolin please. 3 Each 3 01/27/20 25 Active fluticasone furoate-vilantero L (BREO ELLIPTA) 200-25 mcg/dose inhalation powdererIndicatio ns:Moderate persistent asthma without complication (HC) Inhale 1 Puff by mouth once daily. Rinse mouth after use 180 Each 01/27/20 25 Active EPINEPHrine (EpiPen) 0.3 mg/0.3 mL auto-injectorIndi cations:Bee sting allergy Inject 0.3 mg (1 Pen) intramuscular one time if needed for Allergic Reaction. 1 Each 1 01/27/20 25 Active montelukast (SINGULAIR) 10 mg tabletIndications :Moderate persistent asthma without complication (HC) Take 1 Tablet (10 mg) by mouth at bedtime. 90 Tablet 3 01/27/20 25 Active albuterol-ipratro pium (DUONEB) (2.5-0.5 mg) in 3 mL NEBULIZATION solutionIndicatio ns:Moderate persistent asthma, unspecified whether complicated (HC) Inhale 3 mL via a nebulizer 4 times daily if needed for Shortness Of Breath or Wheezing. 90 mL 01/27/20 25 Active albuterol 0.083% (2.5 mg/3 mL) neb solutionIndicatio ns:Moderate persistent asthma without complication (HC) Inhale 3 mL (2.5 mg) via a nebulizer every 4 hours if needed for Shortness Of Breath, Wheezing or Cough. 90 mL 01/27/20 25 Active hydrOXYzine HCL (ATARAX) 25 mg tabletIndications :Panic attack Take 1-2 Tablets (25-50 mg) by mouth every 6 hours if needed for Anxiety (sleep). 90 Tablet 01/27/20 25 Active dextroamphetamine -amphetamine (AdderalL) 10 mg tabletIndications :ADHD (attention deficit hyperactivity disorder), combined type 10 mg daily in morning, 5 mg in evening as needed for ongoing work. 45 Tablet 02/06/20 25 Active dextroamphetamine -amphetamine (AdderalL) 10 mg tabletIndications :ADHD (attention deficit hyperactivity disorder), combined type 10 mg daily in morning, 5 mg in evening as needed for ongoing work. 45 Tablet 03/04/20 25 Active dextroamphetamine -amphetamine (AdderalL) 10 mg tabletIndications :ADHD (attention deficit hyperactivity disorder), combined type 10 mg daily in morning, 5 mg in evening as needed for ongoing work. 45 Tablet 04/02/20 25 Active testosterone cypionate 200 mg/mL oil injectionIndicati ons:Gender dysphoria in adult ADMINISTER 0.2 ML IN THE MUSCLE WEEKLY 2 mL 04/09/20 25 Active ondansetron 4 mg disintegrating tabletIndications :Nausea Place 1 Tablet (4 mg) on the tongue every 8 hours if needed for Nausea/Vomiting. 10 Tablet 04/09/20 Active testosterone cypionate (DEPO-TESTOSTERON E) 200 mg/mL injectionIndicati ons:Gender dysphoria in adult ADMINISTER 0.2 ML IN THE MUSCLE WEEKLY 3 mL 01/27/20 25 025 Discontin ued(Reord er (E-cancel not sent)) ondansetron (ZOFRAN ODT) 4 mg disintegrating tabletIndications :Nausea Place 1 Tablet (4 mg) on the tongue every 8 hours if needed for Nausea/Vomiting. 10 Tablet 02/04/20 25 025 Discontin ued(Reord er (E-cancel not sent)) Active Problems Problem Noted Date Diagnosed Date Gender dysphoria in adult 01/26/2025 Anxiety 03/14/2023 Greater trochanteric bursitis 01/27/2019 Tobacco use 11/24/2018 Gender dysphoria 09/16/2018 ADHD (attention deficit hype ractivity disorder), combined type 06/24/2018 Controlled substance agreement signed 02/28/2018 Controlled substance agreement signed 06/06/2017 Overview (06/06/2017): Discussed in detail and signed today 06/06/2017. Alfredo Garcia MD Anxiety state, unspecified 06/08/2009 Gastroesophageal reflux disease 12/01/2007 Unspecified asthma(493.90) Allergic rhinitis, cause unspecified Overview (03/14/2007): cats dogs dust Other acne Resolved Problems Problem Noted Date Diagnosed Date Resolved Date Dysmenorrhea 06/06/2017 04/01/2019 Overview (06/06/2017): Added automatically from request for surgery [id number] Menorrhagia with regular cycle 06/06/2017 04/01/2019 Overview (06/06/2017): Added automatically from request for surgery [id number] Controlled substance agreement terminated 05/08/2017 06/06/2017 Cannabis dependence, in remission 06/08/2009 12/29/2012 Other and unspecified alcoho l dependence, in remission 06/08/2009 12/29/2012 Major depressive disorder, r ecurrent episode, unspecified 05/25/2008 12/29/2012 Encounters Date Type Department Care Team Description 04/09/2025 Refill [facility] [address] [place] [address] Laura Wilks MD Refill Request (Ondansetron ODT 4mg tablets) 04/09/2025 Telephone [facility] [address] [place] [address] Laura Wilks MD Refill Request (testosterone cypionate (DEPO-TESTOSTERONE) 200 mg/mL injection) 02/15/[address] [address] Laura Wilks MD Prior Authorization (fluticasone furoate-vilanteroL (BREO ELLIPTA) 200-25 mcg/dose 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 APPROVED Coverage Start Date:02/15/2025;Covera ge End Date:02/19/2026) 02/03/[address] [address] Laura Wilks MD Refill Request (ONDANSETRON ODT 4MG TAB) 01/26/2025 2:25 PM WELDING ROBOT OPERATOR Office Visit [facility] [address] [place] [address] Laura Wilks MD Medication Management 01/26/2025 Travel 01/15/[address] [address] Laura Wilks MD Refill Request (testosterone cypionate (DEPO-TESTOSTERONE) 200 mg/mL injection ) 01/15/[address] [address] Laura Wilks MD Error-please disregard from Last 3 Months Immunizations Immunization Administration Dates Next Due DTP 02/24/1993, 0,04/26/1989,03/01,1988 Hepatitis B (Peds) 05/03/1999,01/28/1998, 997 Influenza, IIV3 (Age >=3 years) 07/29/20 16,08/30/2015,07/05/2014,07/16,07/01/2012,08/30/2011,09/20/2005 ,08/08/2004,09/03/2003 Influenza, IIV4 11/04/2019 Influenza,CCIIV4 PRESERV FREE 09/05/2017 MMR 02/24/1993,01/24/1990 Meningococcal Vaccine (Menactra) 05/08/2006 Oral Polio Vaccine 02/24/1993, 0,03/01/1989,12/28 Pneumococcal Poly,23-Valent (Pneumovax) 09/19/2011 Td (Age >=7 Years) 09/03/2003 Tdap 01/26/2025, 4,06/01/2010,05/30 Family History Medical History Relation Name Comments Alcohol/Drug Father alcohol Diabetes Father No Known Problems Maternal Grandfather Cancer-breast Maternal Grandmother diagno sed at 59 GI Disease Maternal Grandmother crohns disease Alcoholism Mother Cancer-breast Mother diagnosed age 43, negative BRCA1 and 2 Cancer-breast Other paternal great aunts 2x Cancer Paternal Aunt skin cancer, l alfredo cancer (smoker) Cancer-breast Paternal Aunt 3x Anesthesia Problem No Family History Blood Disease No Family History Relation Name Status Comments Brother Alive Father Alive Maternal Grandfather Maternal Grandmother Mother Alive Other Paternal Aunt Paternal Grandfather Paternal Grandmother Alive Sister Alive Social History Tobacco Use Types Packs/Day Years Used Date Smoking Tobacco: Every Day Cigarettes 0.3 16.4 Started: 2008 Passive Smoke Exposure: Never Smokeless Tobacco: Never Tobacco Cessation:Ready to Q uit: Yes; Counseling Given: Yes Alcohol Use Standard Drinks/Week Comments Not Currently 0 (1 standard drink = 0.6 oz pur e alcohol) sober since 05/09/2020 PHQ-2 Answer Date Recorded PHQ-2 TOTAL SCORE 3 01/26/2025 Social Connections Answer Date Recorded Do you often feel lonely or isolated from those around you? 0 01/26/2025 Financial Resource Strain Answer Date R ecorded Difficulty of Paying Living Expenses 3 01/26/2025 Difficulty of Paying Living Expenses Not on file 01/26/2025 Food Insecurity Answer Date Recorded Do you worry your food will run out before you are able to buy more? 1 01/26/2025 Transportation Needs Answer Date Record ed Does lack of transportation keep you from medica l appointments? 1 01/26/2025 Does lack of transportation keep you from work, meetings or getting things that you need? 1 01/26/2025 Housing Stability Answer Date Recorded What is your housing situation today? 1 01/26/2025 Utilities Answer Date Recorded Do you have trouble paying f or utilities (for example, heat, electricity, water, phone)? 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 Not on file Not on file Not on file Obstetrics History Para Term AB IAB SAB Ectopic Multiple Livin g Live Births 0 0 0 0 0 0 0 0 0 0 Last Filed Vital Signs Vital Sign Reading Time Taken Comments Blood Pressure 123/78 01/26/2025 2:29 PM WELDING ROBOT OPERATOR Pulse 65 01/26/2025 2:29 PM WELDING ROBOT OPERATOR Temperature 37.1 C (98.8 F) 04/23/2024 2:38 PM CDT Respiratory Rate 24 09/16/2023 7:04 PM CDT Oxygen Saturation 97% 01/26/2025 2:29 PM WELDING ROBOT OPERATOR Inhaled Oxygen Concentration - - Weight 80.6 kg (177 lb 12.8 oz) 01/26/2025 2:29 PM WELDING ROBOT OPERATOR Height 167.6 cm (5' 6) 04/11/2023 4:01 AM CDT Body Mass Index 28.7 04/11/2023 4:01 AM CDT Plan of Treatment Upcoming Encounters Date Type Department Care Team (Late st Contact Info) Description 04/28/2025 2:00 PM CDT Office Visit [facility] [address] [place] [address] Laura Wilks MD [address] [place] [address] Health Maintenance Due Date Last Done Comments Pneumococcal series for age 6-49 (2 of 2 - PCV) 09/19/2012 09/19/2011 BMI (ht and wt on same day) for age 18+ 12/22/2023 12/22/2022, 08/03/2022, 01/26/2021, Additional history exists COVID-19 vaccine series ( season) 2024 Influenza Vaccine (Season Ended) 2025 11/04/2019, 09/05/2017, 07/29/2016, Additional history exists Depression screening for age 12+ 01/26/2026 01/27/20 25 Lipids for age 35-44 12/19/2028 12/19/2023, 07/20/2022, 12/04/2019, Additional history exists Tetanus booster 01/26/2035 01/26/2025, 06/25, 06/01/2010, Additional history exists Hepatitis B series for 19+ Completed 05/03, 01/28/1998, 07/30/1997 HIV for age 15-65 Completed 05/02/2023, , 05/11/2022, Additional history exists Hepatitis C screening for ag e 18-79 Completed 05/02/2023, 05/11/2022, 05/16/2021, Additional history exists Tdap Completed 01/26/2025, 06/25, 06/01/2010, Additional history exists Procedures Procedure Name Priority Date/Time Associated Diagnosis Comments TESTOSTERONE,TOTAL Routine 01/26/2025 3: 27 PM WELDING ROBOT OPERATOR Gender dysphoria COMP METABOLIC PANEL Routine 01/26/2025 3:27 PM WELDING ROBOT OPERATOR Gender dysphoria TSH WITH REFLEX Routine 01/26/2025 3:27 PM WELDING ROBOT OPERATOR Night sweats CBC WITH AUTO DIFFERENTIAL Routine 01/26/2025 3:27 PM WELDING ROBOT OPERATOR Night sweats Gender dysphoria LIPID PANEL W REFLEX MEASURED LDL Routine 12/19/2023 9:07 AM WELDING ROBOT OPERATOR Gender dysphoria in adult LC HIV-1/O/2, 4TH GENERATION Routine 05/02/2023 9:38 AM CDT Screen for STD (sexually transmitted disease) LC HCV ANTIBODY RFX TO QUANT PCR Routine 05/02/2023 9:38 AM CDT Screen for STD (sexually transmitted disease) from Last 3 Months or Most Recently Relevant to Health Maintenance Results * TSH WITH REFLEX (01/26/2025 3:27 PM WELDING ROBOT OPERATOR) Pathologist [facility] TSH W/REFLEX TO FT4 2.00 0.40 - 4.50 mIU/L [facility] Blood BLOOD SPECIMEN / Unknown 01/26/2025 3:27 PM WELDING ROBOT OPERATOR 01/26/2025 3:27 PM WELDING ROBOT OPERATOR us Laura Wilks MD CHEMISTRY Final Resul t [facility] [address] [place] [address], [facility] [address] [place] [address] * (ABNORMAL) CBC AND DIFFERENTIAL (01/26/2025 3:27 PM WELDING ROBOT OPERATOR) [facility] WHITE BLOOD CELL COUNT 9.9 3.8 - 10.8 Thousand/u L [facility] RED BLOOD CELL COUNT 5.37 4.20 - 5.80 Million/uL [facility] HEMOGLOBIN 16.1 13.2 - 17.1 g/dL [facility] HEMATOCRIT 46.6 38.5 - 50.0 % [facility] MCV 86.8 80.0 - 100.0 fL [facility] MCH 30.0 27.0 - 33.0 pg [facility] MCHC 34.5 32.0 - 36.0 g/dL [facility] Comment: For adults, a slight decrease in the calculated MCHC value (in the range of 30 to 32 g/dL) is most likely not clinically significant; however, it should be interpreted with caution in correlation with other red cell parameters and the patient's clinical condition. RDW 12.8 11.0 - 15.0 % [facility] PLATELET COUNT 357 140 - 400 Thousand/u L [facility] MPV 9.7 7.5 - 12.5 fL [facility] ABSOLUTE NEUTROPHILS 4,307 1,500 - 7,800 cells/uL [facility] ABSOLUTE LYMPHOCYTES 4,316(H) 850 - 3,900 cells/uL [facility] ABSOLUTE MONOCYTES 762 200 - 950 cells/uL [facility] ABSOLUTE EOSINOPHILS 446 15 - 500 cells/uL [facility] ABSOLUTE BASOPHILS 69 0 - 200 cells/uL [facility] NEUTROPHILS 43.5 % [facility] LYMPHOCYTES 43.6 % [facility] MONOCYTES 7.7 % [facility] EOSINOPHILS 4.5 % [facility] BASOPHILS 0.7 % [facility] Blood BLOOD SPECIMEN / Unknown 01/26/2025 3:27 PM WELDING ROBOT OPERATOR 01/26/2025 3:27 PM WELDING ROBOT OPERATOR us Laura Wilks MD HEMATOLOGY Final Resul t [facility] [id number] [place] [address], [facility] [address] * TESTOSTERONE,TOTAL (01/26/2025 3:27 PM WELDING ROBOT OPERATOR) Pathologist [facility] TESTOSTERONE, TOTAL, MS 259 250 - 1,100 ng/dL [facility] Comment: Men with clinically significant hypogonadal symptoms and testosterone values repeatedly in the range of the 200-300 ng/dL or less, may benefit from testosterone treatment after adequate risk and benefits counseling. For additional information, please refer to https://education.[employer].TrustCloud/faq/TotalTestosteroneLCMSMS (This link is being provided for informational/educational purposes only.) (Note) This test was developed and its analytical performance characteristics have been determined by [employer]. It has not been cleared or approved by the FDA. This assay has been validated pursuant to the CLIA regulations and is used for clinical purposes. [facility] [address] [facility] [address] [place] [address] Kellee Moreland MD, PhD Blood BLOOD SPECIMEN / Unknown 01/26/2025 3:27 PM WELDING ROBOT OPERATOR 01/26/2025 3:27 PM WELDING ROBOT OPERATOR us Laura Wilks MD CHEMISTRY Final Resul t [facility] [address] [address], [facility] [address] [place] [address], [address] [place] [address] * COMP METABOLIC PANEL (01/26/2025 3:27 PM WELDING ROBOT OPERATOR) GLUCOSE 80 65 - 99 mg/dL [facility] Comment: Fasting reference interval UREA NITROGEN (BUN) 12 7 - 25 mg/dL [facility] CREATININE 0.93 0.60 - 1.26 mg/dL [facility] EGFR 109 > OR = 60 mL/min/1. 73m2 [facility] BUN/CREATININE RATIO SEE NOTE: 6 - 22 (calc) [facility] Comment: Not Reported: BUN and Creatinine are within reference range. SODIUM 138 135 - 146 mmol/L [facility] POTASSIUM 4.1 3.5 - 5.3 mmol/L [facility] CHLORIDE 104 98 - 110 mmol/L [facility] CARBON DIOXIDE 27 20 - 32 mmol/L [facility] CALCIUM 9.8 8.6 - 10.3 mg/dL [facility] PROTEIN, TOTAL 7.4 6.1 - 8.1 g/dL [facility] ALBUMIN 4.6 3.6 - 5.1 g/dL [facility] GLOBULIN 2.8 1.9 - 3.7 g/dL (calc) [facility] ALBUMIN/GLOBULIN RATIO 1.6 1.0 - 2.5 (calc) [facility] BILIRUBIN, TOTAL 0.4 0.2 - 1.2 mg/dL [facility] ALKALINE PHOSPHATASE 41 36 - 130 U/L [facility] AST 13 10 - 40 U/L [facility] ALT 16 9 - 46 U/L [facility] Blood BLOOD SPECIMEN / Unknown 01/26/2025 3:27 PM WELDING ROBOT OPERATOR 01/26/2025 3:27 PM WELDING ROBOT OPERATOR us Laura Wilks MD CHEMISTRY Final Resul t [employer] [facility] [address] [place] [address], [facility] [address] [place] [address] * LIPID PANEL W REFLEX MEASURED LDL (12/19/2023 9:07 AM WELDING ROBOT OPERATOR) CHOLESTEROL,TOTAL 191 100 - 199 mg/dL 12/19/2023 6:18 PM WELDING ROBOT OPERATOR [facility] Comment: Cholesterol, Total Reference Ranges Desirable <200 mg/dL Borderline 200-239 mg/dL High >=240 mg/dL TRIGLYCERIDES 117 <150 mg/dL 12/19/2023 6:18 PM WELDING ROBOT OPERATOR [facility] HDL CHOLESTEROL 48 >40 mg/dL 6:18 PM WELDING ROBOT OPERATOR [facility] NON-HDL CHOLESTEROL 143 <145 mg/dl 12/19/2023 6:18 PM WELDING ROBOT OPERATOR [facility] CHOL/HDL RATIO 3.98 <4.50 12/19/2023 6:18 PM WELDING ROBOT OPERATOR [facility] LDL CHOLESTEROL 120 <=130 mg/dL 12/19/2023 6:18 PM WELDING ROBOT OPERATOR [facility] VLDL CHOLESTEROL 23 <=30 mg/dL 12/19/2023 6:18 PM WELDING ROBOT OPERATOR [facility] PROVIDER ORDERED STATUS RANDOM 12/19/2023 6:18 PM WELDING ROBOT OPERATOR [facility] Blood BLOOD SPECIMEN / Unknown Venipuncture / Unknown 12/19/2023 9:07 AM WELDING ROBOT OPERATOR 12/19/2023 9:09 AM WELDING ROBOT OPERATOR us Laura Wilks MD CHEMISTRY Final Resul t [facility] [address] [place] [address], [place] * LC HCV ANTIBODY RFX TO QUANT PCR (05/02/2023 9:38 AM CDT) Pathologist [facility] HCV Ab Non Reactive Non Reactive 05/04/2023 10:[address] [facility] Blood BLOOD SPECIMEN / Unknown Venipuncture / Unknown 05/02/2023 9:38 AM CDT 05/02/2023 9:39 AM CDT Narrative [facility] - 05/04/2023 10:09 AM CDT Performed at: [address] [place] [id number] Associate Merchandise Planner: Joss Stern MD, Phone: [phone] us [facility] Final Result [facility] ([facility] [address] [place] [address], [place] * LC HIV-1/O/2, 4TH GENERATION (05/02/2023 9:38 AM CDT) Pathologist [facility] HIV Scr 4th Gen Non Reactive Non Reactive 05/04/2023 2:08 PM CDT [facility] Comment: HIV Negative HIV-1/HIV-2 antibodies and HIV-1 p24 antigen were NOT detected. There is no laboratory evidence of HIV infection. 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
--- OUTSIDE RECORDS SUMMARY | 2025-04-13 15:01 | XMS_ITS | Encounter Summary ---
Author Organization [facility] Address [address] [place] [address] Care Team Providers Care Care Process Manager Name Role Phone Laura Wilks MD Primary Care Provider [phone] Mat Ramirez Unavailable Irene Porter MD Unavailable [phone] Irene Porter MD Unavailable [phone] Lacie Jackson MD Unavailable [phone] Encounter Details Date Type Department Care Team (Late st Contact Info) Description 09/11/2019 [facility] [place] [facility] Plastic and Reconstructive Surgery 909 [facility] 4th [place] [address] Irene Porter MD [address] [place] [address] 195 [place] [address] Social History Tobacco [...] PM CDT Legal Sex Male 8:52 PM PAIRER ODDS Gender Identity Male 06/21/2019 10:44 PM CDT Sexual Orientation Not on file documented as of this encounter Plan of Treatment Not on file documented as of this encounter Visit Diagnoses Not on filedocumented in this encounter Care Teams Care Process Manager Relationship Specialty Start Date End Date Laura Wilks MD [facility] [address] [place] [address] PCP - General 12/10/18 Mat Ramirez Specialty Power Plant Operator Apprentice Plastic Surgery 06/23/19 Irene Porter MD [address] [phone] Plastic Surgery 06/23/19 Irene Porter MD [address] [place] [address] [phone] Assigned Surgical Provider 09/16/20 07/15/21 Lacie Jackson MD 3305 [place] [address] Assigned PCP 04/03/23 documented as of this encounter
--- OUTSIDE RECORDS SUMMARY | 2025-04-13 15:01 | XMS_ITS | Encounter Summary ---
Author Organization [place] Address [address] [place] [address] Care Team Providers Care Ornamenter Hand Name Role Phone Laura Wilks MD Primary Care Provider [phone] Mat Ramirez Unavailable Irene Porter MD Unavailable [phone] Irene Porter MD Unavailable [phone] Lacie Jackson MD Unavailable [phone] Encounter Details Date Type Department Care Team (Late st Contact Info) Description 12/10/2019 [facility] Medical Adv[facility] 9[address] [place] [address] Bety Koehler Social History Tobacco [...] PM CDT 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 Gender Identity Male 06/21/2019 10:44 PM CDT Sexual Orientation Not on file documented as of this encounter Plan of Treatment Not on file documented as of this encounter Visit Diagnoses Not on filedocumented in this encounter Care Teams Ornamenter Hand Relationship Specialty Start Date End Date Laura Wilks MD [facility] [address] [place] [address] PCP - General 12/10/18 Mat Ramirez Specialty Screen Printing Paster Plastic Surgery 06/23/19 Irene Porter MD [address] [place] [address] [phone] Plastic Surgery 06/23/19 Irene Porter MD [address] [place] [address] [phone] Assigned Surgical Provider 09/16/20 07/15/21 [place] [address] [place] [address] Assigned PCP 04/03/23 documented as of this encounter
--- OUTSIDE RECORDS SUMMARY | 2025-04-13 15:01 | XMS_ITS | Encounter Summary ---
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 Gender Identity Male 06/21/2019 10:44 PM CDT Sexual Orientation Not on file documented as of this encounter Plan of Treatment Not on file documented as of this encounter Visit Diagnoses Not on filedocumented in this encounter Care Teams Hand Edge Bander Relationship Specialty Start Date End Date Laura Wilks MD [address] [place] [address] PCP - General 12/10/18 Mat Ramirez Specialty Surface Hydrologist Plastic Surgery 06/23/19 Irene Porter MD [address] [phone] Plastic Surgery 06/23/19 Irene Porter MD [address] [id number] Assigned Surgical Provider 09/16/20 07/15/21 Lacie Jackson MD [address] [place] [address] Assigned PCP 04/03/23 documented as of this encounter
[2025-04-13 15:14] LABS: Ur HCG Qualitative* Negative (Negative)
== END 2025-04-13 15:21 | disposition home or self-care (01) ==
PROVIDERS: Emergency Provider Emergency Medicine; PCP Family Medicine
DX: N39.0 Urinary tract infection, site not specified (principal); R31.0 Gross hematuria; R50.9 Fever, unspecified; F64.0 Transsexualism; Z87.890 Personal history of sex reassignment
CPT/HCPCS: 81001; 81025; 87086; 99282; 99283; 99284; A9270

== ENCOUNTER 2025-10-10 17:44 | Emergency (ER) | payer OTHER, SELFPAY ==
--- OUTSIDE RECORDS SUMMARY | 2025-10-10 17:46 | XMS_ITS | Encounter Summary ---
Author Organization [place] Address [address] [place] [address] Care Team Providers Care Material Damage Adjuster Name Role Phone Laura Wilks MD Primary Care Provider [phone] Mat Ramirez Unavailable Irene Porter MD Unavailable [phone] Irene Porter MD Unavailable [phone] Lacie Jackson MD Unavailable [phone] Encounter Details Date Type Department Care Team (Late st Contact Info) Description 11/10/2019 [facility]al [facility] 9[address] 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 Gender Identity Male 06/21/2019 10:44 PM CDT Sexual Orientation Not on file documented as of this encounter Plan of Treatment Not on file documented as of this encounter Visit Diagnoses Not on filedocumented in this encounter Care Teams Material Damage Adjuster Relationship Specialty Start Date End Date Laura Wilks MD [facility] 1400 [place] [address] PCP - General 12/10/18 Mat Ramirez Specialty Rope Machine Setter Plastic Surgery 06/23/19 Irene Porter MD [address] [address] Plastic Surgery 06/23/19 Irene Porter MD [address] [address] Assigned Surgical Provider 09/16/20 07/15/21 Lacie Jackson MD [address] [place] [address] Assigned PCP 04/03/23 documented as of this encounter
--- OUTSIDE RECORDS SUMMARY | 2025-10-10 17:46 | XMS_ITS | Encounter Summary ---
Author Organization [place] Address [address] [place] [address] Care Team Providers Care Sales And Catering Coordinator Name Role Phone Laura Wilks MD Primary Care Provider [phone] Mat Ramirez Unavailable Irene Porter MD Unavailable [phone] Irene Porter MD Unavailable [phone] Lacie Jackson MD Unavailable [phone] Encounter Details Date Type Department Care Team (Late st Contact Info) Description 10/23/2019 [facility] Medical Advice Initial Department [address] [place] [address] Mat Ramirez Social History Tobacco Use Types [...] PM CDT 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 Gender Identity Male 06/21/2019 10:44 PM CDT Sexual Orientation Not on file documented as of this encounter Plan of Treatment Not on file documented as of this encounter Visit Diagnoses Not on filedocumented in this encounter Care Teams Sales And Catering Coordinator Relationship Specialty Start Date End Date Laura Wilks MD [facility] [address] [place] [address] PCP - General 12/10/18 Mat Ramirez Specialty Health Technician Hearing Plastic Surgery 06/23/19 Irene Porter MD 420 [facility] 195 [place], [place] [phone] Plastic Surgery 06/23/19 Irene Porter MD [address] [phone] Assigned Surgical Provider 09/16/20 07/15/21 Lacie Jackson MD 3[address] [place] [address] Assigned PCP 04/03/23 documented as of this encounter
--- OUTSIDE RECORDS SUMMARY | 2025-10-10 17:47 | XMS_ITS | Encounter Summary ---
Author Organization [place] Address [address] [place] [address] Care Team Providers Care Chucking Machine Set Up Operator Tool Name Role Phone Laura Wilks MD Primary Care Provider [phone] Mat Ramirez Unavailable Irene Porter MD Unavailable [phone] Irene Porter MD Unavailable [phone] Lacie Jackson MD Unavailable [phone] Encounter Details Date Type Department Care Team (Late st Contact Info) Description 09/16/2019 [facility] [place] [facility] Plastic and Reconstructive Surgery 909 [facility] 4th [place] [address] Irene Porter MD [address] [place] [address] 195 [place] [address] Social History Tobacco Use Types [...] PM CDT 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 Gender Identity Male 06/21/2019 10:44 PM CDT Sexual Orientation Not on file documented as of this encounter Plan of Treatment Not on file documented as of this encounter Visit Diagnoses Not on filedocumented in this encounter Care Teams Chucking Machine Set Up Operator Tool Relationship Specialty Start Date End Date Laura Wilks MD [facility] [address] [place] [address] PCP - General 12/10/18 Mat Ramirez Specialty Consular Officer Plastic Surgery 06/23/19 Irene Porter MD [address] [phone] Plastic Surgery 06/23/19 Irene Porter MD [address] [phone] Assigned Surgical Provider 09/16/20 07/15/21 Lacie Jackson MD [address] [place] [address] Assigned PCP 04/03/23 documented as of this encounter
--- OUTSIDE RECORDS SUMMARY | 2025-10-10 17:47 | XMS_ITS | Encounter Summary ---
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 Gender Identity Male 06/21/2019 10:44 PM CDT Sexual Orientation Not on file documented as of this encounter Plan of Treatment Not on file documented as of this encounter Visit Diagnoses Not on filedocumented in this encounter Care Teams Band Maker Relationship Specialty Start Date End Date Laura Wilks MD [facility] [address] [place] [address] PCP - General 12/10/18 Mat Ramirez Specialty Interface Developer Plastic Surgery 06/23/19 Irene Porter MD 420 [facility] 195 [place], [place] [phone] Plastic Surgery 06/23/19 Irene Porter MD [address] [phone] Assigned Surgical Provider 09/16/20 07/15/21 Lacie Jackson MD [address] [place] [address] Assigned PCP 04/03/23 documented as of this encounter
--- OUTSIDE RECORDS SUMMARY | 2025-10-10 17:47 | XMS_ITS | Encounter Summary ---
Author Organization [place] Address [address] [place] [address] Care Team Providers Care Battery Tester And Repairer Name Role Phone Laura Wilks MD Primary Care Provider [phone] Mat Ramirez Unavailable Irene Porter MD Unavailable [phone] Irene Porter MD Unavailable [phone] Lacie Jackson MD Unavailable [phone] Encounter Details Date Type Department Care Team (Late st Contact Info) Description 01/06/2020 [facility] Medical Advice [facility] Plastic and Reconstructive Surgery 909 [facility] 4th [place] [address] Irene Porter MD [address] [place] [address] 195 [place] [address] Social History Tobacco Use Types [...] PM CDT 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 Gender Identity Male 06/21/2019 10:44 PM CDT Sexual Orientation Not on file documented as of this encounter Plan of Treatment Not on file documented as of this encounter Visit Diagnoses Not on filedocumented in this encounter Care Teams Battery Tester And Repairer Relationship Specialty Start Date End Date Laura Wilks MD [facility] 1400 [place] [address] PCP - General 12/10/18 Mat Ramirez Specialty Dry Lumber Grader Plastic Surgery 06/23/19 Irene Porter MD [address] [phone] MD Plastic Surgery 06/23/19 Irene Porter MD [address] 640715 Assigned Surgical Provider 09/16/20 07/15/21 Lacie Jackson MD 3[address] [place] [address] Assigned PCP 04/03/23 documented as of this encounter
--- OUTSIDE RECORDS SUMMARY | 2025-10-10 17:47 | XMS_ITS | Encounter Summary ---
Author Organization [place] Address [address] [place] [address] Care Team Providers Care Spray Gunner Name Role Phone Laura Wilks MD Primary Care Provider [phone] Mat Ramirez Unavailable Irene Porter MD Unavailable [phone] Irene Porter MD Unavailable [phone] Lacie Jackson MD Unavailable [phone] Encounter Details Date Type Department Care Team (Late st Contact Info) Description 07/01/2019 [facility] [place] [place] [facility] Plastic and Reconstructive Surgery 909 [facility] 4th [place] [address] Irene Porter MD [address] [place] [address] 195 [place] [address] Social History Tobacco Use Types [...] PM CDT 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 Gender Identity Male 06/21/2019 10:44 PM CDT Sexual Orientation Not on file documented as of this encounter Plan of Treatment Not on file documented as of this encounter Visit Diagnoses Not on filedocumented in this encounter Care Teams Spray Gunner Relationship Specialty Start Date End Date Laura Wilks MD [facility] 1400 [place] [address] PCP - General 12/10/18 Mat Ramirez Specialty Social Worker Masters Plastic Surgery 06/23/19 Irene Porter MD [address] [phone] Plastic Surgery 06/23/19 Irene Porter MD [address] [place] [address] [phone] Assigned Surgical Provider 09/16/20 07/15/21 Lacie Jackson MD [address] [place] [address] Assigned PCP 04/03/23 documented as of this encounter
--- OUTSIDE RECORDS SUMMARY | 2025-10-10 17:47 | XMS_ITS | Encounter Summary ---
Author Organization [place] Address [address] [place] [address] Care Team Providers Care Cyber Engineer Name Role Phone Laura Wilks MD Primary Care Provider [phone] Mat Ramirez Unavailable Irene Porter MD Unavailable [phone] Irene Porter MD Unavailable [phone] Lacie Jackson MD Unavailable [phone] Encounter Details Date Type Department Care Team (Late st Contact Info) Description 09/11/2019 [facility] [place] Medical Advice [facility] Plastic and Reconstructive Surgery 909 [facility] 4th [place] [address] Irene Porter MD [address] [place] [address] 195 [place] [address] Social History Tobacco Use Types [...] PM CDT 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 Gender Identity Male 06/21/2019 10:44 PM CDT Sexual Orientation Not on file documented as of this encounter Plan of Treatment Not on file documented as of this encounter Visit Diagnoses Not on filedocumented in this encounter Care Teams Cyber Engineer Relationship Specialty Start Date End Date Laura Wilks MD [facility] [address] [place] [address] PCP - General 12/10/18 Mat Ramirez Specialty Lift Mechanic Plastic Surgery 06/23/19 Irene Porter MD [address] [phone] Plastic Surgery 06/23/19 Irene Porter MD [address] [place] [address] [phone] Assigned Surgical Provider 09/16/20 07/15/21 Lacie Jackson MD [address] [place] [address] Assigned PCP 04/03/23 documented as of this encounter
--- OUTSIDE RECORDS SUMMARY | 2025-10-10 17:47 | XMS_ITS | Encounter Summary ---
Author Organization [facility] Address [address] [place] [address] Care Team Providers Care Truck Striker Name Role Phone Laura Wilks MD Primary Care Provider [phone] Mat Ramirez Unavailable Irene Porter MD Unavailable [phone] Irene Porter MD Unavailable [phone] Lacie Jackson MD Unavailable [phone] Encounter Details Date Type Department Care Team (Late st Contact Info) Description 09/16/2019 [facility] Medical Advice [facility] [place] [facility] Plastic and Reconstructive Surgery 909 [facility] 4th [place] [address] Irene Porter MD [address] [place] [address] 195 [place] [address] Social History Tobacco Use Types [...] PM CDT 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 Gender Identity Male 06/21/2019 10:44 PM CDT Sexual Orientation Not on file documented as of this encounter Plan of Treatment Not on file documented as of this encounter Visit Diagnoses Not on filedocumented in this encounter Care Teams Truck Striker Relationship Specialty Start Date End Date Laura Wilks MD [facility] [address] [place] [address] PCP - General 12/10/18 Mat Ramirez Specialty Card Placer Plastic Surgery 06/23/19 Irene Porter MD [address] [phone] Plastic Surgery 06/23/19 Irene Porter MD [address] [phone] Assigned Surgical Provider 09/16/20 07/15/21 Lacie Jackson MD [address] [place] [address] Assigned PCP 04/03/23 documented as of this encounter
--- OUTSIDE RECORDS SUMMARY | 2025-10-10 17:47 | XMS_ITS | Encounter Summary ---
Author Organization [facility] Address [address] [place] [address] Care Team Providers Care Trailhead Maintenance Worker Name Role Phone Laura Wilks MD Primary Care Provider [phone] Mat Ramirez Unavailable Irene Porter MD Unavailable [phone] Irene Porter MD Unavailable [phone] Lacie Jackson MD Unavailable [phone] Encounter Details Date Type Department Care Team (Late st Contact Info) Description 12/10/2019 [facility] Medical Advice [facility] 909 [place] [address] Bety Koehler Social History Tobacco [...] PM CDT 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 Gender Identity Male 06/21/2019 10:44 PM CDT Sexual Orientation Not on file documented as of this encounter Plan of Treatment Not on file documented as of this encounter Visit Diagnoses Not on filedocumented in this encounter Care Teams Trailhead Maintenance Worker Relationship Specialty Start Date End Date Laura Wilks MD [facility] [address] [place] [address] PCP - General 12/10/18 Mat Ramirez Specialty Carbonator Plastic Surgery 06/23/19 Irene Porter MD [address] [place] [address] [id number] Plastic Surgery 06/23/19 Irene Porter MD [address] [place] [address] [phone] Assigned Surgical Provider 09/16/20 07/15/21 [place] [address] [place] [address] Assigned PCP 04/03/23 documented as of this encounter
--- OUTSIDE RECORDS SUMMARY | 2025-10-10 17:47 | XMS_ITS | Clinical Summary ---
Author Organization [employer] [facility] Address [address] [place] [address] Care Team Providers Care Perforator Loader Name Role Phone Laura Wilks MD Primary [...] by mouth once daily. 90 tablet 3 015 Active NebulizerIndicati ons:Mild intermittent asthma without complication (HC) Nebulizer, disposable neb kit x 4, reuseable neb kit x 1, mask x 1, filters x 1. 1 Device 017 Active albuterol HFA (Ventolin HFA) 90 mcg/actuation inhalerIndication s:Moderate persistent asthma without complication (HC) INHALE 2 PUFFS BY MOUTH EVERY 4 HOURS NEEDED FOR SHORTNESS OF BREATH OR WHEEZING 18 g 2 024 Active dextroamphetamine -amphetamine (AdderalL) 10 mg tabletIndications :ADHD (attention deficit hyperactivity disorder), combined type 10 mg in the morning on work days, 5 mg in the afternoon as needed to focus 45 Tablet 025 Active levalbuterol (XOPENEX HFA) 45 mcg/actuation inhalerIndication s:Moderate persistent asthma without complication (HC) Inhale 1-2 Puffs by mouth every 4 hours if needed for Shortness Of Breath or Wheezing. 45 g 025 Active fluticasone furoate-vilantero L (BREO ELLIPTA) 200-25 mcg/dose inhalation powdererIndicatio ns:Moderate persistent asthma without complication (HC) Inhale 1 Puff by mouth once daily. Rinse mouth after use 180 Each 025 Active EPINEPHrine (EpiPen) 0.3 mg/0.3 mL auto-injectorIndi cations:Bee sting allergy Inject 0.3 mg (1 Pen) intramuscular one time if needed for Allergic Reaction. 1 Each 1 025 Active montelukast (SINGULAIR) 10 mg tabletIndications :Moderate persistent asthma without complication (HC) Take 1 Tablet (10 mg) by mouth at bedtime. 90 Tablet 3 025 Active albuterol-ipratro pium (DUONEB) (2.5-0.5 mg) in 3 mL NEBULIZATION solutionIndicatio ns:Moderate persistent asthma, unspecified whether complicated (HC) Inhale 3 mL via a nebulizer 4 times daily if needed for Shortness Of Breath or Wheezing. 90 mL 025 Active albuterol 0.083% (2.5 mg/3 mL) neb solutionIndicatio ns:Moderate persistent asthma without complication (HC) Inhale 3 mL (2.5 mg) via a nebulizer every 4 hours if needed for Shortness Of Breath, Wheezing or Cough. 90 mL 025 Active hydrOXYzine HCL (ATARAX) 25 mg tabletIndications :Panic attack Take 1-2 Tablets (25-50 mg) by mouth every 6 hours if needed for Anxiety (sleep). 90 Tablet 025 Active cephalexin 500 mg capsule Take 1 Capsule by mouth two times daily. 025 Active dextroamphetamine -amphetamine (AdderalL) 10 mg tabletIndications :ADHD (attention deficit hyperactivity disorder), combined type 10 mg daily in morning, 5 mg in evening as needed for ongoing work. 45 Tablet 025 Active dextroamphetamine -amphetamine (AdderalL) 10 mg tabletIndications :ADHD (attention deficit hyperactivity disorder), combined type 10 mg daily in morning, 5 mg in evening as needed for ongoing work. 45 Tablet 025 Active dextroamphetamine -amphetamine (AdderalL) 10 mg tabletIndications :ADHD (attention deficit hyperactivity disorder), combined type 10 mg daily in morning, 5 mg in evening as needed for ongoing work. 45 Tablet 025 Active Needle (Disp) 25 G 25 gauge x 3/4 ndleIndications:G robert dysphoria As directed. 100 Each 3 025 Active Syringe (Disposable) 1 mL syrgIndications:G robert dysphoria As directed 1 Device. 100 Each 3 025 Active testosterone cypionate (DEPO-TESTOSTERON E) 200 mg/mL oil injectionIndicati ons:Gender dysphoria in adult ADMINISTER 0.2 ML IN THE MUSCLE WEEKLY 1 mL 025 Active albuterol HFA (PRO-AIR; VENTOLIN; PROVENTIL) 90 mcg/actuation inhalerIndication s:Moderate persistent asthma without complication (HC) Inhale 1-2 Puffs by mouth every 4 hours if needed for Shortness Of Breath or Wheezing. Brand name ventolin please. 3 Each 1 025 Active promethazine-dext romethorphan 6.25-15 mg/5 mL solutionIndicatio ns:Acute cough Take 5 mL by mouth every 6 hours if needed for Cough. 118 mL 025 Active predniSONE (DELTASONE) 20 mg tablet Take 20 mg by mouth two times daily with meals. 023 Active nicotine 14 mg/24 hr (NICODERM; HABITROL) 14 mg/24 hr patchIndications: Tobacco use Apply 1 Patch on dry, clean, hairless skin once daily. 28 Patch 5 025 Active budesonide-formot [place] (Symbicort) 80-4.5 mcg/actuation (80-4.5 mcg each actuation) inhalerIndication s:Moderate persistent asthma, unspecified whether complicated (HC) Inhale 2 Puffs by mouth two times daily. 10.2 g 025 Active ondansetron (ZOFRAN ODT) 4 mg disintegrating tabletIndications :Nausea DISSOLVE 1 TABLET(4 MG) ON THE TONGUE EVERY 8 HOURS NEEDED FOR NAUSEA OR VOMITING 10 Tablet 025 Active ondansetron 4 mg disintegrating tabletIndications :Nausea Place 1 Tablet (4 mg) on the tongue every 8 hours if needed for Nausea/Vomiting. 10 Tablet 025 2024 Discontinued ondansetron (ZOFRAN ODT) 4 mg disintegrating tabletIndications :Nausea DISSOLVE 1 TABLET(4 MG) ON THE TONGUE EVERY 8 HOURS NEEDED FOR NAUSEA OR VOMITING 10 Tablet 025 2024 Discontinued Active Problems Problem Noted Date Diagnosed Date [...] (06/06/2017): Added automatically from request for surgery [id number] Menorrhagia with regular cycle 06/06/2017 04/01/2019 Overview (06/06/2017): Added automatically from request for surgery [id number] Controlled substance agreement terminated 05/08/2017 06/06/2017 Cannabis dependence, in remission 06/08/2009 12/29/2012 Other and unspecified alcoho l dependence, in remission 06/08/2009 12/29/2012 Major depressive disorder, r ecurrent episode, unspecified 05/25/2008 12/29/2012 Encounters Date Type Department Care Team Description 10/07/2025 Refill [facility] [address] [place] [address] Laura Wilks MD Refill Request (Ondansetron) 09/14/2025 Telephone [facility] [employer] Prescription Assistance Program [employer] [address] [facility] [id number] [place] [address] Laura Andrews PharmD Medication Management ([facility] Prescription Assistance- Asthma controller inhaler/) 09/14/2025 Refill [facility] [address] [place] [address] Laura Wilks MD Refill Request (Ondansetron) 08/19/2025 10:25 AM CDT Office Visit [facility] [address] [place] [address] Laura Wilks MD Breathing Problem 08/19/2025 Travel 08/14/2025 8:40 AM CDT Office Visit [facility] - [address] [id number] Robert Bowden PA Shortness Of Breath (congested,fatigue, congested) 08/14/2025 Travel 08/13/2025 Nurse Triage [facility] [address] [place] [address] Laura Wilks MD Breathing Problem 07/16/2025 Refill [facility] [address] [place] [address] Laura Wilks MD Refill Request (Albuterol HFA inh (200 puffs) 18gm) from Last 3 Months Immunizations Immunization Administration [...] Date Smoking Tobacco: Every Day Cigarettes 0.3 16.9 Started: 2008 Passive Smoke Exposure: Never Smokeless [...] or isolated from those around you? 0 08/14/2025 Financial Resource Strain Answer Date R ecorded Difficulty of Paying Living Expenses 3 01/26/2025 Difficulty of Paying Living Expenses Not on file 01/26/2025 Food Insecurity Answer Date Recorded Do you worry your food will run out before you are able to buy more? 1 08/14/2025 Transportation Needs Answer Date Record ed Does lack of transportation keep you from medica l appointments? 1 08/14/2025 Does lack of transportation keep you from work, meetings or getting things that you need? 1 08/14/2025 Housing Stability Answer Date Recorded What is your housing situation today? 1 08/14/2025 Utilities Answer Date Recorded Do you have trouble paying f or utilities (for example, heat, electricity, water, phone)? 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 Not on file Not on file Not on file Obstetrics History Para Term AB IAB SAB Ectopic Multiple Livin g Live Births 0 0 0 0 0 0 0 0 0 0 Last Filed Vital Signs Vital Sign Reading Time Taken Comments Blood Pressure 126/71 08/19/2025 11:35 AM CDT Pulse 85 08/19/2025 11:35 AM CDT Temperature 36.2 C (97.2 F) 08/14/2025 8:09 AM CDT Respiratory Rate 16 08/14/2025 8:09 AM CDT Oxygen Saturation 98% 08/19/2025 11:35 AM CDT Inhaled Oxygen Concentration - - Weight 78.9 kg (174 lb) 08/14/2025 8:09 AM CDT Height 167.6 cm (5' 6) 04/25/2025 8:56 AM CDT Body Mass Index 28.08 04/25/2025 8:56 AM CDT Plan of Treatment Health Maintenance Due Date Last Done Comments HPV series for age 9-45 (2 - 3-dose series) 07/20/2011 06/22/2011 (Declined) Pneumococcal series for age 6-49 (2 of 2 - PCV) 09/19/2012 09/19/2011 HPV series for age 9-45 (1 - 3-dose SCDM series) 2015 Influenza Vaccine (#1) 2025 9, 09/05/2017, 07/29/2016, Additional history exists Depression screening for age 12+ 01/26/2026 01/26/2025, 07/21/2024, 03/20/2024, Additional history exists BMI (ht and wt on same day) for age 18+ 04/25/2026 04/25/2025, 12/22/2022, 08/03/2022, Additional history exists Lipids for age 35-44 12/19/2028 12/19/2023, 07/20/2022, 12/04/2019, Additional history exists Tetanus booster 01/26/2035 01/26/2025, 06/25, 06/01/2010, Additional history exists RSV vaccine for adults or (1 - 1-dose 75+ series) 2063 Hepatitis B series for 19+ Completed 05/03, 01/28/1998, 07/30/1997 HIV for age 15-65 Completed 05/02/2023, , 05/11/2022, Additional history exists Hepatitis C screening for ag e 18-79 Completed 05/02/2023, 05/11/2022, 05/16/2021, Additional history exists Procedures Procedure Name Priority Date/Time Associated Diagnosis Comments COVID/FLU/RSV PANEL Routine 08/14/2025 8 :40 AM CDT Acute cough LIPID PANEL W REFLEX MEASURED LDL Routine 12/19/2023 9:07 AM CLAIM EXAMINER Gender dysphoria in adult LC HIV-1/O/2, 4TH GENERATION Routine 05/02/2023 9:38 AM CDT Screen for STD (sexually transmitted disease) LC HCV ANTIBODY RFX TO QUANT PCR Routine 05/02/2023 9:38 AM CDT Screen for STD (sexually transmitted disease) from Last 3 Months or Most Recently Relevant to Health Maintenance Results * COVID/FLU/RSV PANEL (08/14/2025 8:40 AM CDT) COVID 19 [facility] MOLECULAR Negative Negative 08/14/2025 9:21 PM CDT [facility] INFLUENZA A PCR Negative 9:21 PM CDT [facility] INFLUENZA B PCR Negative 9:21 PM CDT [facility] Respiratory Syncytial Virus Negative 08/14/2025 9:21 PM CDT [facility] Swab SPECIMEN FROM NASAL FOSSAE / Unknown Non-Blood / Unknown 08/14/2025 8:40 AM CDT 08/14/2025 9:03 AM CDT Robert [facility] Charlene l Result [facility] [address] [place] [address], * LIPID PANEL W REFLEX MEASURED LDL (12/19/2023 9:07 AM CLAIM EXAMINER) CHOLESTEROL,TOTAL 191 100 - 199 mg/dL 12/19/2023 6:18 PM CLAIM EXAMINER [facility] Comment: Cholesterol, Total Reference Ranges Desirable <200 mg/dL Borderline 200-239 mg/dL High >=240 mg/dL TRIGLYCERIDES 117 <150 mg/dL 12/19/2023 6:18 PM CLAIM EXAMINER [facility] HDL CHOLESTEROL 48 >40 mg/dL 6:18 PM CLAIM EXAMINER [facility] NON-HDL CHOLESTEROL 143 <145 mg/dl 12/19/2023 6:18 PM CLAIM EXAMINER [facility] CHOL/HDL RATIO 3.98 <4.50 12/19/2023 6:18 PM CLAIM EXAMINER [facility] LDL CHOLESTEROL 120 <=130 mg/dL 12/19/2023 6:18 PM CLAIM EXAMINER [facility] VLDL CHOLESTEROL 23 <=30 mg/dL 12/19/2023 6:18 PM CLAIM EXAMINER [facility] PROVIDER ORDERED STATUS RANDOM 12/19/2023 6:18 PM CLAIM EXAMINER [facility] Blood BLOOD SPECIMEN / Unknown Venipuncture / Unknown 12/19/2023 9:07 AM CLAIM EXAMINER 12/19/2023 9:09 AM CLAIM EXAMINER Laura Wilks MD CHEMISTRY Final Resul t [facility] [address] [place] [address], * LC HCV ANTIBODY RFX TO QUANT PCR (05/02/2023 9:38 AM CDT) HCV Ab Non Reactive Non Reactive 05/04/2023 10:09 AM CDT [facility] ([facility]) Blood BLOOD SPECIMEN / Unknown Venipuncture / Unknown 05/02/2023 9:38 AM CDT 05/02/2023 9:39 AM CDT [facility] ([facility]) - 05/04/2023 10:09 AM CDT Performed at: [address] [place] [id number] Manager Channel: Joss Stern MD, Phone: [phone] [facility] Final Result [facility] ([facility]) [facility] [place] [address], * LC HIV-1/O/2, 4TH GENERATION (05/02/2023 9:38 AM CDT) HIV Scr 4th Gen Non Reactive Non Reactive 05/04/2023 2:08 PM CDT [facility] ([facility]) Comment: HIV Negative HIV-1/HIV-2 antibodies and HIV-1 p24 antigen were NOT detected. There is no laboratory evidence of HIV infection. Blood BLOOD SPECIMEN / Unknown Venipuncture / Unknown 05/02/2023 9:38 AM CDT 05/02/2023 9:39 AM CDT Narrative [facility] ([facility]) - 05/04/2023 2:08 PM CDT Performed at: [address] [id number] Manager Channel: Joss Stern MD, Phone: [phone] [facility] Final Result [facility] ([facility]) [address] [place] [address], [place] from Last 3 Months or Most Recently Relevant to Health Maintenance Insurance [employer] Advance Directives Documents on File Type Date Recorded Patient Elevator Serviceman Expl anation Treatment Guidelines 07/17/2018 12:00 AM * Full Code (Latest Code Status on File) Date Activated Date Inactivated Comments 04/03/2018 9:43 AM 04/04/2018 2:31 AM * Full Code Date Activated Date Inactivated Comments 03/01/2008 5:42 AM 03/01/2008 12:49 PM Care Teams Perforator Loader Relationship Specialty Start Date End Date Laura Wilks MD [address] [place] [address] PCP - General Family Practice 08/31/21
--- OUTSIDE RECORDS SUMMARY | 2025-10-10 17:47 | XMS_ITS | Clinical Summary ---
Author Organization [facility] Address [address] [place] [address] Care Team Providers Care Chief Of Internal Medicine Name Role Phone Laura Wilks MD Primary Care Provider [phone] Mat Ramirez Unavailable Irene Porter MD Unavailable Lacie Jackson MD Unavailable [phone] Allergies Active Allergy Reactions Criticality Noted Date Comments Animal Dander 02/27/2018 Other reaction(s): Angioedema Wheezing; puffy face. Morphine Anxiety Low 05/02/2009 Panic attacks No Clinical Screening - Other Allergy Hives 03/01/2008 Other reaction(s): Edema, Respiratory Distress [...] (12/10/2019): Added automatically from request for surgery [id number] Social History Tobacco Use Types Packs/Day Years [...] PM CDT Legal Sex Male 8:52 PM DIRECTOR OF REHABILITATION Gender Identity Male 06/21/2019 10:44 PM CDT [...] 04/01/2022 04/01/2019 DIABETES SCREENING 12/16/2022 12/16/2019 DTAP/TDAP/TD VACCINE (9 - Td or Tdap) 07/05/2024 07/05/2014, 06/01/2010, 05/30/2010, Additional history exists PHQ-2 (once per calendar year) 2024 04/29/2023, 12/15/2019, 12/15/2019, Additional history exists COVID-19 VACCINE ( - season) 2025 INFLUENZA VACCINE (#1) 2025 9, 09/05/2017, 07/29/2016, Additional history exists ZOSTER VACCINE (1 of 2) 2038 HEPATITIS B VACCINE Completed 05/03/1999, 01/28/1998, 07/30/1997 MENINGITIS VACCINE Completed 05/08/2006 PNEUMOCOCCAL VACCINE: PEDIATRICS (0 to 5 YEARS) AND AT-RISK PATIENTS (6 to 49 YEARS) Aged Out 09/19/2011 No longer eligible based on patient's age to complete this topic HEPATITIS C SCREENING Completed 05/02/2023, 022 HIV SCREENING Completed 05/02/2023, 03/25, 05/11/2022 HPV VACCINE (No Doses Required) Completed Procedures Procedure Name Priority Date/Time Associated Diagnosis Comments GLUCOSE BY METER Routine 12/16/2019 11:0 6 AM DIRECTOR OF REHABILITATION Gender dysphoria in adolescent and adult from Last 3 Months or Most Recently Relevant to Health Maintenance Results * (ABNORMAL) Glucose by meter (12/16/2019 11:06 AM DIRECTOR OF REHABILITATION) Glucose 109(H) 70 - 99 mg/dL 12/16/2019 11:19 AM DIRECTOR OF REHABILITATION POINT OF CARE TEST, GLUCOSE 12/16/2019 11:0 6 AM DIRECTOR OF REHABILITATION 12/16/2019 11:19 AM DIRECTOR OF REHABILITATION Irene Porter MD [facility] Final Result POINT OF CARE TEST, GLUCOSE from Last 3 Months or Most Recently Relevant to Health Maintenance Insurance [facility] Advance Directives For more information, please contact: [phone] * Full Code (Latest Code Status on File) Date Activated Date Inactivated Comments 12/16/2019 12:38 PM 01/01/2020 9:52 AM Question Answer Comments Code status determined by: Discussion with alecia nt/legal decision maker Care Teams Chief Of Internal Medicine Relationship Specialty Start Date End Date Laura Wilks MD [facility] [address] [place] [address] PCP - General 12/10/18 Mta Ramirez Specialty Milk Powder Grinder Plastic Surgery 06/23/19 Irene Porter MD [address] [facility] [address] [place] [address] Plastic Surgery 06/23/19 [place] [address] [place] [address] Assigned PCP 04/03/23
--- OUTSIDE RECORDS SUMMARY | 2025-10-10 17:48 | XMS_ITS | Encounter Summary ---
Author Organization [facility] Address [address] [place] [address] Care Team Providers Care Director Life Sales Name Role Phone Laura Wilks MD Primary Care Provider Mat Ramirez Unavailable Irene Porter MD Unavailable [phone] Lacie Jackson MD Unavailable [phone] Encounter Details Date Type Department Care Team (Late st Contact Info) Description 08/09/2022 [facility] [place] [facility] [place] [address] [place] [address] Zack Da Silva, FABIO Social [...] PM CDT Legal Sex Male 8:52 PM CLINICAL DIRECTOR Gender Identity Male 06/21/2019 10:44 PM CDT [...] on filedocumented in this encounter Care Teams Director Life Sales Relationship Specialty Start Date End Date Laura Wilks MD [facility] [address] [place] [address] PCP - General 12/10/18 Mat Ramirez Specialty Miter Grinder Operator Plastic Surgery 06/23/19 Irene Porter MD [address] [facility] [address] [place], [place] [address] Plastic Surgery 06/23/19 Lacie Jackson MD [address] [place] [address] Assigned PCP 04/03/23 documented as of this encounter
--- OUTSIDE RECORDS SUMMARY | 2025-10-10 17:48 | XMS_ITS | Encounter Summary ---
Author Organization [facility] Address [address] [place] [address] Care Team Providers Care Light Rail Operator Name Role Phone Laura Wilks MD Primary Care Provider Mat Ramirez Unavailable Irene Porter MD Unavailable [phone] Lacie Jackson MD Unavailable [phone] Encounter Details Date Type Department Care Team (Late st Contact Info) Description 08/09/2022 [facility] [place] [facility] [place] [address] [place] [address] Zack Da Silva, FABIO Social [...] PM CDT Legal Sex Male 8:52 PM NETWORK CABLER Gender Identity Male 06/21/2019 10:44 PM CDT [...] on filedocumented in this encounter Care Teams Light Rail Operator Relationship Specialty Start Date End Date Laura Wilks MD [facility] [address] [place] [address] PCP - General 12/10/18 Mat Ramirez Specialty Salesperson [employer] Plastic Surgery 06/23/19 Irene Porter MD [address] [facility] [address] [place], [place] [address] Plastic Surgery 06/23/19 Lacie Jackson MD [address] [place] [address] Assigned PCP 04/03/23 documented as of this encounter
--- OUTSIDE RECORDS SUMMARY | 2025-10-10 17:48 | XMS_ITS | Encounter Summary ---
Author Organization [facility] Address [address] [place] [address] Care Team Providers Care Line Palletizer Name Role Phone Laura Wilks MD Primary Care Provider [phone] Mat Ramirez Unavailable Irene Porter MD Unavailable [phone] Irene Porter MD Unavailable [phone] Lacie Jackson MD Unavailable [phone] Encounter Details Date Type Department Care Team (Late st Contact Info) Description 01/01/2020 [facility] Medical Advice [facility] Plastic and Reconstructive Surgery [address] [facility] 4th [place] [address] Irene Porter MD [address] [place] [address] [address] [place] [address] Social History Tobacco Use Types [...] PM CDT Legal Sex Male 8:52 PM INSIDE SALES Gender Identity Male 06/21/2019 10:44 PM CDT Sexual Orientation Not on file documented as of this encounter Plan of Treatment Not on file documented as of this encounter Visit Diagnoses Not on filedocumented in this encounter Care Teams Line Palletizer Relationship Specialty Start Date End Date Laura Wilks MD [facility] [address] [place] [address] PCP - General 12/10/18 Mat Ramirez Specialty [employer] Art Teacher Plastic Surgery 06/23/19 Irene Porter MD [address] [address] MD Plastic Surgery 06/23/19 Irene Porter MD [address] [id number] Assigned Surgical Provider 09/16/20 07/15/21 Lacie Jackson MD [address] [place] [address] Assigned PCP 04/03/23 documented as of this encounter
--- OUTSIDE RECORDS SUMMARY | 2025-10-10 17:48 | XMS_ITS | Encounter Summary ---
Author Organization [facility] Address [address] [place] [address] Care Team Providers Care Certified Credit Counselor Name Role Phone Laura Wilks MD Primary Care Provider [phone] Mat Ramirez Unavailable Irene Porter MD Unavailable [phone] Irene Porter MD Unavailable [phone] Lacie Jackson MD Unavailable [phone] Reason for Visit * Reason Onset Date Comments Refill Request 12/28/2019 Encounter Details Date Type Department Care Team (Late st Contact Info) Description 12/28/2019 [facility] Refill [facility] Plastic and Reconstructive Surgery [address] [facility] 4th [place] [address] Irene Porter MD [address] [place] [address] [address] [place] [address] Refill Request Social History Tobacco [...] adult documented in this encounter Care Teams Certified Credit Counselor Relationship Specialty Start Date End Date Laura Wilks MD [facility] [address] [place] [address] PCP - General 12/10/18 Mat Ramirez Specialty Personal Trainer Plastic Surgery 06/23/19 Irene Porter MD [address] [address] Plastic Surgery 06/23/19 Irene Porter MD [address] [place] [address] [id number] Assigned Surgical Provider 09/16/20 07/15/21 Lacie Jackson MD [address] [place] [address] Assigned PCP 04/03/23 documented as of this encounter
[2025-10-10 18:00] VITALS: BP 131/83; PULSE 85; RESP 18; TEMP 37.2; O2SAT 97; BMI 29.1
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
[2025-10-10] MEDS: MAGNESIUM CITRATE 300 ML SOLUTION PO (18:30)
== END 2025-10-10 18:35 | disposition home or self-care (01) ==
LOC: ED 18:25
PROVIDERS: Emergency Provider Internal Medicine; PCP Family Medicine
DX: K60.2 Anal fissure, unspecified (principal); F17.210 Nicotine dependence, cigarettes, uncomplicated
CPT/HCPCS: 99283; A9270